=== PATIENT | male | born 1965 | race African-American/Black ===

== ENCOUNTER 2016-11-29 21:54 | Emergency (ER) | payer MEDICARE, OTHER ==
[2016-11-29 22:02] VITALS: BP 119/76
[2016-11-29] MEDS ORDERED: OXYCODONE-ACETAMINOPHEN 5-325 MG TABLET PO ONE (23:23)
--- NOTE | 2016-11-29 23:23 | ER Document Report ---
ED Wound - General Chief Complaint: Wound Infection Stated Complaint: POST OP CONCERNS Time Seen by Provider: 11/29/16 23:10 Notes: Patient is a 50-year-old male comes in the department for chief complaint of wanting his surgical wound evaluated, he states that on 11/21/2016 he had surgical removal of an abdominal mass and hernia repair by Dr. Matthews at [place]. He states that today he noticed an area near the lower part of the wound that was draining some clear fluid, he denies pain, fever, chills, he has a colostomy bag secondary to a recent bowel obstruction which was also repaired and this has been filling normally. He denies any vomiting. He has a follow- up on 12/03/2016. TRAVEL OUTSIDE OF THE [place] IN LAST 30 DAYS: No - Related Data Allergies/Adverse Reactions: No Known Allergies Allergy (Verified 03/23/16 22:33) Past Medical History - General Information source: Patient - Social History Smoking Status: Never Smoker Frequency of alcohol use: None Lives with: Spouse/Significant other Family History: Reviewed & Not Pertinent Patient has suicidal ideation: No Patient has homicidal ideation: No - Past Medical History Cardiac Medical History: Denies: Hx Heart Attack, Hx Hypertension Pulmonary Medical History: Reports: Hx Sleep Apnea - Patient has CPAP but doesnt use it Denies: Hx Asthma, Hx Bronchitis, Hx COPD, Hx Pneumonia, Hx Respiratory Failure, Hx Tuberculosis Neurological Medical History: Denies: Hx Seizures Renal/ Medical History: Denies: Hx Peritoneal Dialysis Malignancy Medical History: Reports Hx Colorectal Cancer GI Medical History: Denies: Hx Gastroesophageal Reflux Disease, Hx Hiatal Hernia , Hx Ulcer Musculoskeltal Medical History: Denies Hx Arthritis Psychiatric Medical History: Reports: Hx Depression, Hx Post Traumatic Stress Disorder Denies: Hx Bipolar Disorder, Hx Schizophrenia Past Surgical History: Denies: Hx Appendectomy, Hx Bowel Surgery, Hx Cholecystectomy, Hx Open Heart Surgery, Hx Tonsillectomy - Immunizations Hx Diphtheria, Pertussis, Tetanus Vaccination: Yes Review of Systems - Review of Systems Constitutional: No symptoms reported EENT: No symptoms reported Cardiovascular: No symptoms reported Respiratory: No symptoms reported Gastrointestinal: No symptoms reported Genitourinary: No symptoms reported Male Genitourinary: No symptoms reported Musculoskeletal: No symptoms reported Skin: See HPI Hematologic/Lymphatic: No symptoms reported Neurological/Psychological: No symptoms reported Physical Exam - Vital signs Vitals: Temp Pulse Resp BP Pulse Ox 98.5 F 95 18 119/76 98 11/29/16 21:57 11/29/16 21:57 11/29/16 21:57 11/29/16 21:57 11/29/16 21:57 Interpretation: Normal - General General appearance: Appears well, Alert In distress: None - HEENT Head: Normocephalic, Atraumatic Eyes: Normal Conjunctiva: Normal Extraocular movements intact: Yes Eyelashes: Normal Pupils: PERRL Nasal: Normal Mouth/Lips: Normal Mucous membranes: Normal Pharynx: Normal Neck: Normal - Respiratory Respiratory status: No respiratory distress Chest status: Nontender Breath sounds: Normal Chest palpation: Normal - Cardiovascular Rhythm: Regular Heart sounds: Normal auscultation Murmur: No - Abdominal Inspection: Other - There is a large ventral surgical wound with current maggie surgeon vertically from the epigastric area all the way down to the groin, there are [address] in the bilateral groin areas. There is one area in question in the area and the superior groin where one staple pulled out on one side and there is a 2 cm opening that is partial- thickness with granulation tissue below this and clear drainage. No significant surrounding erythema or tenderness, no other abnormalities noted Distension: No distension Bowel sounds: Normal Tenderness: Nontender Organomegaly: No organomegaly - Back Back: Normal, Nontender. No: Tender - Extremities General upper extremity: Normal inspection, Nontender, Normal color, Normal ROM , Normal temperature General lower extremity: Normal inspection, Nontender, Normal color, Normal ROM , Normal temperature, Normal weight bearing. No: Ashish's sign - Neurological Neuro grossly intact: Yes Cognition: Normal Orientation: AAOx4 [place] Coma Scale Eye Opening: Spontaneous [place] Coma Scale Verbal: Oriented Isabel Coma Scale Motor: Obeys Commands Isabel Coma Scale Total: 15 Speech: Normal Motor strength normal: LUE, RUE, LLE, RLE Sensory: Normal - Psychological Associated symptoms: Normal affect, Normal mood - Skin Skin Temperature: Warm Skin Moisture: Dry Skin Color: Normal Course - Re-evaluation Re-evalutation: I did review the triage note, states that patient states the area is red and inflamed and had purulent drainage. Patient denies that the area is inflamed or red, denies any purulent drainage, reports a small amount of clearish drainage and that the area looks strange compared to earlier. What has happened is that one of the maggie pulled out and the wound slightly and a small portion of the lower aspect, the superficial layer is pulled to the side with a precarious staple on one side. The staple was removed because of its lack of function and irritation with movement, the wound was unchanged after the removal because of the staple no longer being embedded properly. Patient admits he had increased physical activity today trying to move/get around. Bacitracin and Telfa dressing placed. Called and spoke with Dr. Matthews applications support lead surgeon, described patient's pulled out staple in slightly open wound without significant depth, clear drainage, and patient's concerns about follow-up with this. Recommends topical dressing, regular wound care, and close follow-up in the office. Discussed with patient again, patient stated satisfaction agreement. Also discussed signs of infection and return precautions. - Vital Signs Vital signs: Temp Pulse Resp BP Pulse Ox 98.5 F 95 18 119/76 98 11/29/16 21:57 11/29/16 21:57 11/29/16 21:57 11/29/16 21:57 11/29/16 21:57 Discharge - Discharge Clinical Impression: Visit for wound check Condition: Stable Disposition: HOME, SELF-CARE Additional Instructions: The staple has been removed, the area does not show any concerning abnormalities , please apply a bacterial dressing to the area clean with soap and water gently , follow-up closely in the clinic with your surgeon for reevaluation. Return to emergency department for any concerning symptoms including fever, redness or spreading redness to the area, discolored drainage, or any other concerning symptoms.
== END 2016-11-30 01:06 | disposition home or self-care (01) ==
LOC: ER 21:54
DX: T81.31XA Disruption of external operation (surgical) wound, not elsewhere classified, initial encounter (principal); Y83.8 Other surgical procedures as the cause of abnormal reaction of the patient, or of later complication, without mention of misadventure at the time of the procedure; Z93.3 Colostomy status
CPT/HCPCS: 99283; A9270

== ENCOUNTER 2017-02-26 23:30 | Observation (INO) | payer MEDICARE, OTHER ==
[2017-02-27] MEDS ORDERED: CIPROFLOXACIN 400 MG/D5W RTU 200 ML IV ONE (03:22)
[2017-02-27] MEDS ORDERED: METRONIDAZOLE 500 MG/NS RTU 100 ML IV ONE (03:23)
[2017-02-27] MEDS ORDERED: NORMAL SALINE 1000 ML 1,000 ML IV ONE (03:24)
[2017-02-27 03:41] LABS: ABSOLUTE BASOPHILS # (AUTO) 0.1 10^3/uL (0.0-0.2); ABSOLUTE EOSINOPHILS # (AUTO) 0.1 10^3/uL (0.0-0.6); ABSOLUTE LYMPHOCYTES (AUTO) 1.1 10^3/uL (0.5-4.7); ABSOLUTE MONOCYTES (AUTO) 1.4 10^3/uL (0.1-1.4); ABSOLUTE NEUT (AUTO) 12.5 10^3/uL (1.7-8.2); BASOPHILS % (AUTO) 0.6 % (0-2); EOSINOPHILS % (AUTO) 0.5 % (0-6); HEMATOCRIT 38.3 % (37.9-51.0); HEMOGLOBIN 12.7 g/dL (13.5-17.0); HGB HCT DIFFERENCE -0.2; LYMPHOCYTES % (AUTO) 7.3 % (13-45); MEAN CORPUSCULAR HEMOGLOBIN 29.1 pg (27.0-33.4); MEAN CORPUSCULAR HGB CONC 33.3 g/dL (32.0-36.0); MEAN CORPUSCULAR VOLUME 87 fl (80-97); MONOCYTES % (AUTO) 9.2 % (3-13); RED BLOOD COUNT 4.39 10^6/uL (4.35-5.55); SEGMENTED NEUTROPHILS % (AUTO) 82.4 % (42-78); WHITE BLOOD COUNT 15.1 10^3/uL (4.0-10.5)
[2017-02-27 03:50] LABS: ALANINE AMINOTRANSFERASE 29 U/L (21-72); ALBUMIN 3.5 g/dL (3.5-5.0); ALKALINE PHOSPHATASE 128 U/L (38-126); ANION GAP 8 (5-19); ASPARTATE AMINO TRANSFERASE 18 U/L (17-59); BILIRUBIN,DIRECT 0.3 mg/dL (0.0-0.4); BILIRUBIN,TOTAL 0.4 mg/dL (0.2-1.3); BLOOD UREA NITROGEN 9 mg/dL (7-20); CALCIUM 9.3 mg/dL (8.4-10.2); CARBON DIOXIDE 21 mmol/L (22-30); CHLORIDE 108 mmol/L (98-107); CREATININE RESULT 0.84 mg/dL (0.52-1.25); GLUCOSE 98 mg/dL (75-110); POTASSIUM 4.6 mmol/L (3.6-5.0); SODIUM 136.7 mmol/L (137-145); TOTAL PROTEIN 6.8 g/dL (6.3-8.2)
--- NOTE | 2017-02-27 06:00 | ER Document Report ---
HPI - HPI Pain Level: 5 Notes: Patient is a 51-year-old male with a history of current colon cancer who presents the ED complaining of an abscess to his perineal area 1-2 days. Patient states that he has had abscesses in this area in the past and needed it I&D'd and put to sleep. Patient states that he has not noticed any discharge. Patient states that the area is very tender. He denies any history of MRSA. Denies any fever, RABAGO, cp, palp, sob, wheeze, abd pain, n/v/d, dysuria, streaks. PCM is Dr. Nunes. Pt is requesting if he needs another I&D to be put to sleep in surgery. - ROS Notes: REVIEW OF SYSTEMS: CONSTITUTIONAL : Denies fever, chills, or sweats. Denies recent illness. EENT: Denies eye, ear, throat, or mouth pain or symptoms. Denies nasal or sinus congestion or discharge. Denies throat, tongue, or mouth swelling or difficulty swallowing. CARDIOVASCULAR: Denies chest pain. Denies palpitations or racing or irregular heart beat. Denies ankle edema. RESPIRATORY: Denies cough, cold, or chest congestion. Denies shortness of breath, difficulty breathing, or wheezing. GASTROINTESTINAL: Denies abdominal pain or distention. Denies nausea, vomiting , or diarrhea. Denies blood in vomitus, stools, or per rectum. Denies black, tarry stools. Denies constipation. GENITOURINARY: Denies difficulty urinating, painful urination, burning, frequency, blood in urine, or discharge. MUSCULOSKELETAL: Denies back or neck pain or stiffness. Denies joint pain or swelling. SKIN: see hpi NEUROLOGICAL: Denies confusion or altered mental status. Denies passing out or loss of consciousness. Denies dizziness or lightheadedness. Denies headache. Denies weakness or paralysis or loss of use of either side. Denies problems with gait or speech. Denies sensory loss, numbness, or tingling. ALL OTHER SYSTEMS REVIEWED AND NEGATIVE. Dictation was performed using [employer] voice recognition software - DERM Skin Color: Normal, [place] Past Medical History - Social History Smoking Status: Current Every Day Smoker Frequency of alcohol use: Occasional Drug Abuse: None Family History: Reviewed & Not Pertinent - Past Medical History Cardiac Medical History: Denies: Hx Heart Attack, Hx Hypertension Pulmonary Medical History: Reports: Hx Sleep Apnea - Patient has CPAP but doesnt use it Denies: Hx Asthma, Hx Bronchitis, Hx COPD, Hx Pneumonia, Hx Respiratory Failure, Hx Tuberculosis Neurological Medical History: Denies: Hx Seizures Renal/ Medical History: Denies: Hx Peritoneal Dialysis Malignancy Medical History: Reports Hx Colorectal Cancer GI Medical History: Denies: Hx Gastroesophageal Reflux Disease, Hx Hiatal Hernia , Hx Ulcer Musculoskeltal Medical History: Denies Hx Arthritis Psychiatric Medical History: Reports: Hx Depression, Hx Post Traumatic Stress Disorder Denies: Hx Bipolar Disorder, Hx Schizophrenia Past Surgical History: Reports: Hx Kidney (Renal Surgery) - bilat stents q 6months, Hx Rectal Surgery - colorectal resection; colostomy. Denies: Hx Appendectomy, Hx Bowel Surgery, Hx Cholecystectomy, Hx Open Heart Surgery, Hx Tonsillectomy - Immunizations Hx Diphtheria, Pertussis, Tetanus Vaccination: Yes Vertical Provider Document - CONSTITUTIONAL Agree With Documented VS: Yes Notes: PHYSICAL EXAMINATION: GENERAL: Well-appearing, well-nourished and in no acute distress. LUNGS: Breath sounds clear to auscultation bilaterally and equal. No wheezes rales or rhonchi. HEART: Regular rate and rhythm without murmurs, rubs, gallops. ABDOMEN: Soft, nontender, nondistended abdomen. No guarding, no rebound. No masses appreciated. Normal bowel sounds present. No CVA tenderness bilaterally. Musculoskeletal: FROM to passive/active. Strength 5+/5. NEUROLOGICAL: Cranial nerves grossly intact. Normal speech, normal gait. Normal sensory, motor exams PSYCH: Normal mood, normal affect. SKIN: Multiple abscesses noted to the perineal area. One abscess is actively draining with a very foul odor and purulence. He has a larger 5-6cm abscess area running along the inferior aspect of the penile shaft with induration. He has several other smaller abscesses with induration. No streaks noted. + tenderness to palp. - INFECTION CONTROL TRAVEL OUTSIDE OF THE [place] IN LAST 30 DAYS: No - RESPIRATORY O2 Sat by Pulse Oximetry: 98 Course - Re-evaluation Re-evalutation: 02/27/17 06:00 Patient is an afebrile, well-hydrated, 51-year-old male with a current history of cancer presents the ED with multiple abscesses to the perineal area. Vitals are stable. PE otherwise unremarkable at this time. Per patient request I did consult with Dr. Doss who did come to the ED and evaluated the patient. The patient is set up for a surgical procedure in the morning for incision and drainage under general sedation. Care has been transferred to the general surgeon. Pt has no new concerns or complaints. Recheck with PCM otherwise in 2 -3 days. Return to ED with any worsening/concerning symptoms otherwise reviewed discharge. Patient is in agreement. - Vital Signs Vital signs: Temp Pulse Resp BP Pulse Ox 98.5 F 105 H 16 126/79 H 98 02/26/17 23:33 02/26/17 23:33 02/26/17 23:33 02/26/17 23:33 02/26/17 23:33 - Laboratory Result Diagrams: 02/27/17 03:00 02/27/17 03:00 Laboratory results interpreted by me: 02/27/17 02/27/17 03:00 03:00 WBC 15.1 H Hgb 12.7 L RDW 16.0 H Seg Neutrophils % 82.4 H Lymphocytes % 7.3 L Absolute Neutrophils 12.5 H Sodium 136.7 L Chloride 108 H Carbon Dioxide 21 L Alkaline Phosphatase 128 H Discharge - Discharge Clinical Impression: Abscess Condition: Stable Disposition: SAME DAY SURGERY Admitting Provider: Surgicalist - Dr. Doss Unit Admitted: Surgical Floor
--- NOTE | 2017-02-27 06:22 | HISTORY AND PHYSICAL E ---
History and Physical NAME: MEE MACIAS : 1965 AGE: 51Y ADMITTED: 02/26/2017 ROOM: CHIEF COMPLAINT: Pain on the perineal area. HISTORY OF PRESENT ILLNESS: This is a 51-year-old -[place] male, who noted painful swelling on the perineal area about 2 days ago. He went to the emergency room and in the ER; the area had swollen spontaneously, drained. He had a history of multiple hidradenitis along the perineum area in the past. Those of these hidradenitis were just subsided without medical therapy or they drained on their own. PAST HISTORY: This patient had a history of colorectal cancer in 2011. He had original operation here at [facility] and then had a formal abdominoperineal resection within colostomy at [place]. He had a bowel obstruction and had operation at [facility] in November of this year. 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 This was noted on a CAT scan in January and just had his first Keytruda treatment. He also has a ureteral stenting that changes every 6 months since he had radiation therapy around the uterus. The stents need to be changed every 6 months and is due next month. He has no difficulty, but spontaneously unable to control his urination. REVIEW OF SYSTEMS: Denies any chest pain, shortness of breath, diarrhea, or constipation. Has inability to control his voiding, appears to be worse at the time of changing of his ureteral stents, it has been every 6 months. His colostomy is functioning well. Occasional flare-up of his hidradenitis suppurativa and now has abscess likely from the hidradenitis at the perineal area. Other systems review then are negative. SOCIAL HISTORY: Smokes about 2 cigars a day. Drinks about 6 packs of beer with about 4 shots of hot drink every week. Denies recreational drug use. FAMILY HISTORY: Family history is very strong for cancer and both parents of cancer. He also had been diagnosed himself with colorectal cancer at age 45. PHYSICAL EXAMINATION: GENERAL: A well-developed and well-nourished 51-year-old -[place] male. Alert and oriented in no apparent acute distress. HEENT: Neck is supple. No thyromegaly. LUNGS: Clear. HEART: Regular sinus rhythm. ABDOMEN: Soft and nontender. Colostomy functioning well. On the perineal area, he has got a swelling and that is very tender, the tender rectum and the base of the scrotum. He says he has a small amount of bloody discharge. IMPRESSION: Perineal abscess. PLAN: The patient to be n.p.o. and start IV antibiotics for possible incision and drainage of perineal abscess. DICTATING PHYSICIAN: REGINE GAGE M.D. [id number] PHY#: [id number] ID: [id number] JOB#: [id number] ACCT: [id number] cc: >
[2017-02-27] MEDS ORDERED: SUCCINYLCHOLINE CHLORIDE INJ 200 MG/10 ML VIAL ONE (10:01)
[2017-02-27] MEDS ORDERED: ONDANSETRON HCL INJ/PF 4 MG/2 ML SDV ONE (10:01)
--- NOTE | 2017-02-27 10:06 | PDOC PROGRESS REPORT ---
Subjective Progress Note for:: 02/27/17 Subjective:: pain at the perineum and bilateral groins. Physical Exam Vital Signs: Temp Pulse Resp BP Pulse Ox 99.0 F 85 16 128/75 H 100 02/27/17 06:10 02/27/17 06:10 02/27/17 06:10 02/27/17 06:10 02/27/17 06:10 General appearance: PRESENT: no acute distress, cooperative Skin exam: PRESENT: other - Left upper inner thigh with an oblong region of fluctuance and tenderness with sinus tract. Smaller region on the right upper inner thigh. Tenderness and fluctuance at the perineum as well. Tender and erythematous. Assessment & Plan - Diagnosis (1) Hidradenitis suppurativa Is this a current diagnosis for this admission?: YesPlan: Infected. Of bilateral groin and perineum. Will plan excisional debridement in the operating room. Patient understands risks and benefits of the procedure since he has undergone this procedure in the past. He understands that the wound will be left open and there may be prolonged wound healing as well as recurrence.
[2017-02-27] MEDS ORDERED: FENTANYL CITRATE INJ/PF 250 MCG/5 ML AMPULE ONE (12:37)
[2017-02-27] MEDS ORDERED: MIDAZOLAM 2 MG/2 ML INJ ONE (12:37)
[2017-02-27] MEDS ORDERED: PROPOFOL INJ 200 MG/20 ML VIAL IV ONE (12:38)
[2017-02-27] MEDS ORDERED: KETAMINE HCL INJ 500 MG/10 ML VIAL ONE (12:38)
[2017-02-27] MEDS ORDERED: BUPIVACAINE HCL 0.25 % INJ/PF (2.5 MG/1 ML) 30 ML VIAL ONE (12:39)
[2017-02-27] MEDS ORDERED: CEFAZOLIN INJ 1 GM VIAL ONE (13:17)
[2017-02-27] MEDS ORDERED: DIPHENHYDRAMINE HCL 50 MG/ML VIAL IV PRN (13:37)
[2017-02-27] MEDS ORDERED: MORPHINE SULFATE 10 MG/ML INJ IV PRN ×2 (13:37→14:00)
[2017-02-27] MEDS ORDERED: FENTANYL CITRATE INJ/PF 100 MCG/2 ML AMPUL IV PRN ×3 (13:37)
[2017-02-27] MEDS ORDERED: OXYCODONE-ACETAMINOPHEN 5-325 MG TABLET PO PRN (14:00)
--- NOTE | 2017-02-27 14:00 | Operative Report ---
Operative Report DATE OF SURGERY: 02/27/17 PREOPERATIVE DIAGNOSIS: Hidradenitis suppurativa abscesses of the bilateral groin and perineum POSTOPERATIVE DIAGNOSIS: Same OPERATION: Excisional debridement of bilateral groin and perineal hidradenitis suppurativa. SURGEON: JEFFREY TAMEZ ANESTHESIA: GA TISSUE REMOVED OR ALTERED: Bilateral groin and perineal hidradenitis suppurativa sinus tracts and pus COMPLICATIONS: None ESTIMATED BLOOD LOSS: 50 cc INTRAOPERATIVE FINDINGS: Multiple proximal sinus tracts that the perineum and bilateral groin with small amount of pus. PROCEDURE: Consent was obtained. Patient was brought to the operating room placed on the operating room table in the supine position. After satisfactory induction of general anesthesia patient was placed in stirrups and his groin and perineum were prepped and draped in usual sterile fashion. Patient had sinus tracts in the perineum with oblong region of what felt like fluctuance. Sinus tracts were probed and filleted open and sharply debrided with a combination of scalpel as well as curetting. Hemostasis was achieved with electrocautery. The wound was explored to make sure there were no undrained pus pockets. On the left groin there was an oblong region of fluctuance this was associated with the sinus tract which was filleted open and again debrided with combination of scalpel as well as curetting and this wound was explored to make sure there were no undrained pus pockets. A very small area of thickening with the sinus tract was noted in the right groin and this area was also filleted open and curetted and explored. Small amount of pus that was encountered during the dissections were swabbed for Gram stain and culture. Hemostasis appeared to be good. Wounds were packed with gauze. Patient tolerated procedure well with no apparent complications and was taken to the recovery area in stable condition.
[2017-02-27] MEDS ORDERED: IBUPROFEN INJ 800 MG/8 ML VIAL IV ONE (14:30)
[2017-02-27] MEDS ORDERED: FENTANYL CITRATE INJ/PF 100 MCG/2 ML AMPUL ONE (14:30)
[2017-02-27] MEDS ORDERED: ACETAMINOPHEN 100 ML IV ONE (14:31)
[2017-02-27] MEDS: CEFAZOLIN 1 GM/D5W RTU 50 ML IV SCH ×2 (19:33→23:23)
[2017-02-28] MEDS: CEFAZOLIN 1 GM/D5W RTU 50 ML IV SCH ×2 (05:05→11:29)
[2017-02-28 11:47] VITALS: BP 132/85
--- NOTE | 2017-02-28 16:47 | DISCHARGE SUMMARY E ---
Discharge Summary NAME: MEE MACIAS : 1965 AGE: 51Y ADMITTED: 02/27/2017 DISCHARGED: 02/28/2017 FINAL DIAGNOSIS: Hidradenitis suppurativa abscesses of bilateral groin and perineum. PROCEDURE DONE: Excisional debridement of bilateral groin and perineal hidradenitis suppurativa. SURGEON: Dr. Johnson on 02/27/17. SUMMARY: This is a 51-year-old male who is known to have hidradenitis suppurativa for quite some time according to the patient. He had chronic hidradenitis suppurativa that would spontaneously open and then close. He never had anything done in the hospital for this until the day of admission. He has a history of colon cancer and undergoing Keytruda therapy. Therefore his immune system is somewhat decreased. After the I and D and excision, postoperatively he did well. He will be continued on p.o. doxycycline 50 mg daily for about 30 days or until his immunotherapy is done or if the lesions in the perineum and groin have been healed. Patient to be followed up on a p.r.n. basis with the surgical clinical. DICTATING PHYSICIAN: REGINE GAGE M.D. [id number] PHY#: [id number] ID: [id number] JOB#: [id number] ACCT: [id number] cc:[facility], REGINE CHOUDHURY M.D, M.D. [facility], [facility] >
== END 2017-02-28 12:40 | disposition home or self-care (01) ==
LOC: ER 23:30 → EH 02-27 07:29 → 5 02-27 15:38
PROVIDERS: ATTEND Surgery
PROC: 0JBB0ZZ Excision of Perineum Subcutaneous Tissue and Fascia, Open Approach (ICD-10-PCS; principal; 2017-02-27 12:45)
DX: L73.2 Hidradenitis suppurativa (principal); D49.89 Neoplasm of unspecified behavior of other specified sites; Z79.899 Other long term (current) drug therapy; Z85.038 Personal history of other malignant neoplasm of large intestine; R39.198 Other difficulties with micturition; Z96.0 Presence of urogenital implants; Z92.3 Personal history of irradiation; Z80.9 Family history of malignant neoplasm, unspecified; Z93.3 Colostomy status; F17.290 Nicotine dependence, other tobacco product, uncomplicated; G47.30 Sleep apnea, unspecified; Z91.19 Patient's noncompliance with other medical treatment and regimen; Z90.49 Acquired absence of other specified parts of digestive tract
CPT/HCPCS: 99284; 96365; 96368; 36415; 87040; 87070; 87205; 85025; 87075; 87077; 80053; 88305 ×2; 11470; G0378 ×3; J2250; J0690 ×3; J3010 ×2; J0330; J2405; J7030; J2704; J0744; J0131; J1741; 400; J3490

== ENCOUNTER 2017-04-28 09:39 | Emergency (ER) | payer MEDICARE, OTHER ==
[2017-04-28 09:47] VITALS: BP 139/92
[2017-04-28] MEDS ORDERED: OXYCODONE-ACETAMINOPHEN 5-325 MG TABLET PO ONE (10:04)
[2017-04-28] MEDS ORDERED: SULFAMETHOXAZOLE/TRIMETHOPRIM 800-160 MG TABLET PO ONE (10:04)
[2017-04-28] MEDS ORDERED: LIDOCAINE 1% INJ-PF (10 MG/ML) 30 ML SDV INJ ONE (10:04)
--- NOTE | 2017-04-28 10:05 | ER Document Report ---
ED Skin Rash/Insect Bite/Abscs - General Chief Complaint: Abscess Stated Complaint: POSSIBLE ABCESS ON GROIN Time Seen by Provider: 04/28/17 09:50 Notes: Patient is a 51-year-old male who presents emergency department with a history of hidradenitis suprapubic. Patient states that he has an area within his right groin that he states needs an I&D but is been there for about 2 days. States it is no larger than the size of a dime. Tender to touch. Otherwise he denies any fever, chills. Denies any other sites that are concerning for infection. Primary care is Dr. Barragan. TRAVEL OUTSIDE OF THE [place] IN LAST 30 DAYS: No - Related Data Allergies/Adverse Reactions: No Known Allergies Allergy (Verified 02/26/17 23:33) Past Medical History - Social History Smoking Status: Never Smoker Family History: Reviewed & Not Pertinent Patient has suicidal ideation: No Patient has homicidal ideation: No - Past Medical History Cardiac Medical History: Denies: Hx Heart Attack, Hx Hypertension Pulmonary Medical History: Reports: Hx Sleep Apnea - Patient has CPAP but doesnt use it Denies: Hx Asthma, Hx Bronchitis, Hx COPD, Hx Pneumonia, Hx Respiratory Failure, Hx Tuberculosis Neurological Medical History: Denies: Hx Seizures Renal/ Medical History: Denies: Hx Peritoneal Dialysis Malignancy Medical History: Reports Hx Colorectal Cancer GI Medical History: Denies: Hx Gastroesophageal Reflux Disease, Hx Hiatal Hernia , Hx Ulcer Musculoskeltal Medical History: Denies Hx Arthritis Psychiatric Medical History: Reports: Hx Depression, Hx Post Traumatic Stress Disorder Denies: Hx Bipolar Disorder, Hx Schizophrenia Past Surgical History: Reports: Hx Kidney (Renal Surgery) - bilat stents q 6months, Hx Rectal Surgery - colorectal resection; colostomy. Denies: Hx Appendectomy, Hx Bowel Surgery, Hx Cholecystectomy, Hx Open Heart Surgery, Hx Tonsillectomy - Immunizations Hx Diphtheria, Pertussis, Tetanus Vaccination: Yes Review of Systems - Review of Systems Constitutional: No symptoms reported Skin: See HPI -: Yes All other systems reviewed and negative Physical Exam - Vital signs Vitals: Temp Pulse Resp BP Pulse Ox 98.6 F 77 20 127/77 H 97 04/28/17 02:47 04/28/17 02:47 04/28/17 02:47 04/28/17 02:47 04/28/17 02:47 - General General appearance: Appears well, Alert In distress: None - Cardiovascular Rhythm: Regular Heart sounds: Normal auscultation, S1 appreciated, S2 appreciated Gallop: None auscultated Pulses: Normal: Radial - Genitourinary Inspection: Normal. No: Blood at meatus, Penile discharge, Other Tenderness: Nontender. No: Lesions, Testicle tender, Epididymis tender, Other Cremasteric reflex: Normal. No: Right reflex absent, Left reflex absent Scrotum: Normal. No: Swelling, Redness, Hot to touch, Other - Extremities General lower extremity: Normal inspection, Nontender, Normal color, Normal ROM , Normal strength, Normal temperature, Normal weight bearing - Neurological Motor strength normal: LLE, RLE - Skin Skin Temperature: Warm Skin Moisture: Dry Skin irregularity: Abscess - Within patient's right groin there is an area that measures approximately centimeters by 2 7 m with mild fluctuation and tenderness more medial and inferior to that is another site that is approximately the size of a dime that is come to head that is tender to touch. Course - Re-evaluation Re-evalutation: 04/28/17 9:55 Patient is a 51-year-old male who is hemodynamically stable, no acute distress afebrile. Presentation today is consistent with adenitis supratip. Both sites were lanced using an 11 blade and purulent material removed. Otherwise no other indication for surgical consult given no areas involving his scrotum, penis with concerns for Timoteo's gangrene. No evidence of abscess crossing the joint requiring further incision and drainage. Patient will be placed on Bactrim and to follow-up in 3 days with primary care for a wound check. Patient agrees with plan - Vital Signs Vital signs: Temp Pulse Resp BP Pulse Ox 98.0 F 95 16 139/92 H 97 04/28/17 09:45 04/28/17 09:45 04/28/17 09:45 04/28/17 09:45 04/28/17 09:45 Procedures - Incision and Drainage Right Groin Type: Multiple - 2 Blade size: 11 I&D procedure: Chlorprep applied Incision Method: Incision made by scalpel Amount/type of drainage: Approximately 15 cc total of purulent material Male anatomy: 1 - Large abscess measuring 3 cm x 2 cm 2 - Small site measuring 1 cm in diameter Discharge - Discharge Clinical Impression: Hidradenitis suppurativa Condition: Good Disposition: HOME, SELF-CARE Instructions: Post Incision and Drainage, Trimethoprim-Sulfa ([facility]) Prescriptions: Oxycodone HCl/Acetaminophen [Percocet 5-325 mg Tablet] 1 - 2 tab PO Q4H PRN #15 tablet PRN Reason: Sulfamethoxazole/Trimethoprim [Bactrim Ds Tablet] 2 each PO BID 7 Days tablet Referrals: GALILEA BARRAGAN MD [Primary Care Provider] - Follow up in 1 week
== END 2017-04-28 11:56 | disposition home or self-care (01) ==
LOC: ER 09:39
PROC: 0H9AXZZ Drainage of Inguinal Skin, External Approach (ICD-10-PCS; principal; 2017-04-28)
DX: L73.2 Hidradenitis suppurativa (principal); L02.214 Cutaneous abscess of groin; Z85.048 Personal history of other malignant neoplasm of rectum, rectosigmoid junction, and anus
CPT/HCPCS: 99283; 10061; J3490; A9270 ×2

== ENCOUNTER → 2017-07-01 | Outpatient (CLI) | payer MEDICARE, OTHER ==
--- NOTE | 2017-07-01 13:08 | RADIOLOGY REPORT (SQ) ---
EXAM DESCRIPTION: LUMBAR SPINE COMPLETE COMPLETED DATE/TIME: 07/01/2017 12:48 pm REASON FOR STUDY: LOW BACK PAIN M54.5 LOW BACK PAIN COMPARISON: None. NUMBER OF VIEWS: Five views including obliques. TECHNIQUE: AP, lateral, oblique, and sacral radiographic images acquired of the lumbar spine. LIMITATIONS: None. FINDINGS: MINERALIZATION: Normal. SEGMENTATION: Normal. No transitional anatomy. ALIGNMENT: Normal. VERTEBRAE: Maintained height. No fracture or worrisome bone lesion. DISCS: Disc spaces narrowed at L5-S1. POSTERIOR ELEMENTS: Pedicles and facets are intact. No pars defect or posterior arch defects. HARDWARE: None in the spine. Bilateral ureteral stents and percutaneous nephrostomies are present. PARASPINAL SOFT TISSUES: Normal. PELVIS: Intact as visualized. No fractures or worrisome bone lesions. SI joints intact. OTHER: No other significant finding. IMPRESSION: Degenerative disc changes L5-S1. TECHNICAL DOCUMENTATION: JOB ID: [id number] [employer]- All Rights Reserved
== END ==
LOC: OD 12:30
PROVIDERS: ATTEND Physician Assistant
DX: M47.9 Spondylosis, unspecified (principal); M54.5 Low back pain
CPT/HCPCS: 72110

== ENCOUNTER 2017-08-16 10:05 | Observation (INO) | payer MEDICARE, OTHER ==
--- NOTE | 2017-08-16 10:28 | ER Document Report ---
ED Medical Screen (RME) - General Chief Complaint: Abscess Stated Complaint: POSSIBLE ABSCESS Time Seen by Provider: 08/16/17 10:19 Mode of Arrival: Ambulatory Information source: Patient Notes: 51-year-old male presents with 2 separate complaints. Patient's first complaint is abscess in the perineal region, second his ear clogging. Patient has had multiple previous abscesses I have greeted and performed a rapid initial assessment of this patient. A comprehensive ED assessment and evaluation of the patient, analysis of test results and completion of the medical decision making process will be conducted by additional ED providers. PHYSICAL EXAMINATION: GENERAL: Well-appearing, well-nourished and in no acute distress. HEAD: Atraumatic, normocephalic. EYES: Pupils equal round extraocular movements intact, conjunctiva are normal. ENT: Nares patent NECK: Normal range of motion LUNGS: No respiratory distress Musculoskeletal: Normal range of motion NEUROLOGICAL: Normal speech, normal gait. PSYCH: Normal mood, normal affect. SKIN: multiple abscesses of the perineal region TRAVEL OUTSIDE OF THE [place] IN LAST 30 DAYS: No - Related Data Allergies/Adverse Reactions: No Known Allergies Allergy (Verified 08/16/17 10:06) Past Medical History - Social History Frequency of alcohol use: Occasional Drug Abuse: None - Past Medical History Cardiac Medical History: Denies: Hx Heart Attack, Hx Hypertension Pulmonary Medical History: Reports: Hx Sleep Apnea - Patient has CPAP but doesnt use it Denies: Hx Asthma, Hx Bronchitis, Hx COPD, Hx Pneumonia, Hx Respiratory Failure, Hx Tuberculosis Neurological Medical History: Denies: Hx Seizures Renal/ Medical History: Denies: Hx Peritoneal Dialysis Malignancy Medical History: Reports Hx Colorectal Cancer GI Medical History: Denies: Hx Gastroesophageal Reflux Disease, Hx Hiatal Hernia , Hx Pancreatitis, Hx Ulcer Musculoskeltal Medical History: Denies Hx Arthritis Psychiatric Medical History: Reports: Hx Depression, Hx Post Traumatic Stress Disorder Denies: Hx Bipolar Disorder, Hx Schizophrenia Past Surgical History: Reports: Hx Kidney (Renal Surgery) - bilat stents q 6months, Hx Rectal Surgery - colorectal resection; colostomy. Denies: Hx Appendectomy, Hx Bowel Surgery, Hx Cholecystectomy, Hx Open Heart Surgery, Hx Tonsillectomy - Immunizations Hx Diphtheria, Pertussis, Tetanus Vaccination: Yes History of Influenza Vaccine for 04/2017 - 09/2017 Season: No Physical Exam - Vital signs Vitals: Temp Pulse Resp BP Pulse Ox 98.5 F 97 20 130/86 H 99 08/16/17 10:10 08/16/17 10:10 08/16/17 10:10 08/16/17 10:10 08/16/17 10:10 Course - Vital Signs Vital signs: Temp Pulse Resp BP Pulse Ox 98.5 F 97 20 130/86 H 99 08/16/17 10:10 08/16/17 10:10 08/16/17 10:10 08/16/17 10:10 08/16/17 10:10
--- NOTE | 2017-08-16 11:00 | ER Document Report ---
ED Skin Rash/Insect Bite/Abscs - General Chief Complaint: Abscess Stated Complaint: POSSIBLE ABSCESS Time Seen by Provider: 08/16/17 10:19 Mode of Arrival: Ambulatory TRAVEL OUTSIDE OF THE [place] IN LAST 30 DAYS: No - HPI Patient complains to provider of: Skin rash/lesion, Tender/swollen area - Pt with h/o perineal abscesses in the past with c/o swollen tender area at base of his scrotum for the past 1-2 days. - Related Data Allergies/Adverse Reactions: No Known Allergies Allergy (Verified 08/16/17 10:06) Past Medical History - General Information source: Patient - Social History Smoking Status: Current Every Day Smoker Cigarette use (# per day): Yes Chew tobacco use (# tins/day): No Smoking Education Provided: Yes Frequency of alcohol use: Occasional Drug Abuse: None Family History: Reviewed & Not Pertinent Patient has suicidal ideation: No Patient has homicidal ideation: No - Past Medical History Cardiac Medical History: Denies: Hx Heart Attack, Hx Hypertension Pulmonary Medical History: Reports: Hx Sleep Apnea - Patient has CPAP but doesnt use it Denies: Hx Asthma, Hx Bronchitis, Hx COPD, Hx Pneumonia, Hx Respiratory Failure, Hx Tuberculosis Neurological Medical History: Denies: Hx Seizures Renal/ Medical History: Denies: Hx Peritoneal Dialysis Malignancy Medical History: Reports Hx Colorectal Cancer GI Medical History: Denies: Hx Gastroesophageal Reflux Disease, Hx Hiatal Hernia , Hx Pancreatitis, Hx Ulcer Musculoskeltal Medical History: Denies Hx Arthritis Psychiatric Medical History: Reports: Hx Depression, Hx Post Traumatic Stress Disorder Denies: Hx Bipolar Disorder, Hx Schizophrenia Past Surgical History: Reports: Hx Kidney (Renal Surgery) - bilat stents q 6months, Hx Rectal Surgery - colorectal resection; colostomy. Denies: Hx Appendectomy, Hx Bowel Surgery, Hx Cholecystectomy, Hx Open Heart Surgery, Hx Tonsillectomy - Immunizations Hx Diphtheria, Pertussis, Tetanus Vaccination: Yes Review of Systems - Review of Systems Constitutional: No symptoms reported EENT: No symptoms reported Cardiovascular: No symptoms reported Respiratory: No symptoms reported Gastrointestinal: No symptoms reported Skin: See HPI, Other - perienal abscesses Physical Exam - Vital signs Vitals: Temp Pulse Resp BP Pulse Ox 98.5 F 97 20 130/86 H 99 08/16/17 10:10 08/16/17 10:10 08/16/17 10:10 08/16/17 10:10 08/16/17 10:10 - General General appearance: Appears well In distress: Mild - Respiratory Respiratory status: No respiratory distress Breath sounds: Normal - Cardiovascular Rhythm: Regular Heart sounds: Normal auscultation - Abdominal Inspection: Normal Tenderness: Nontender - Genitourinary Inspection: Other - there is a large erythemetous, tender swollen area at the base of his scrotum approx 5 by 5 cm which is exquisitely TTP. He has mutiple scars near that lesion that have been I and D'd in the past. Course - Vital Signs Vital signs: Temp Pulse Resp BP Pulse Ox 98.5 F 97 20 130/86 H 99 08/16/17 10:10 08/16/17 10:10 08/16/17 10:10 08/16/17 10:10 08/16/17 10:10 - Consults wagner Wang Time consulted: 11:07 Consulted provider: will come to ER Discharge - Discharge Clinical Impression: Hidradenitis suppurativa Condition: Stable
[2017-08-16 11:42] LABS: ABSOLUTE BASOPHILS # (AUTO) 0.1 10^3/uL (0.0-0.2); ABSOLUTE EOSINOPHILS # (AUTO) 0.1 10^3/uL (0.0-0.6); ABSOLUTE LYMPHOCYTES (AUTO) 1.1 10^3/uL (0.5-4.7); ABSOLUTE MONOCYTES (AUTO) 1.2 10^3/uL (0.1-1.4); ABSOLUTE NEUT (AUTO) 11.9 10^3/uL (1.7-8.2); BASOPHILS % (AUTO) 0.7 % (0-2); EOSINOPHILS % (AUTO) 0.9 % (0-6); HEMATOCRIT 39.6 % (37.9-51.0); LYMPHOCYTES % (AUTO) 7.8 % (13-45); MEAN CORPUSCULAR HGB CONC 32.8 g/dL (32.0-36.0); MEAN CORPUSCULAR VOLUME 89 fl (80-97); MONOCYTES % (AUTO) 8.1 % (3-13); PLATELET COUNT 347 10^3/uL (150-450); RED BLOOD COUNT 4.47 10^6/uL (4.35-5.55); RED CELL DISTRIBUTION WIDTH 14.4 % (11.5-14.0); SEGMENTED NEUTROPHILS % (AUTO) 82.5 % (42-78); TOTAL CELLS COUNTED % (AUTO) 100 %; WHITE BLOOD COUNT 14.5 10^3/uL (4.0-10.5)
[2017-08-16 11:54] LABS: ALANINE AMINOTRANSFERASE 18 U/L (21-72); ALBUMIN 3.8 g/dL (3.5-5.0); ALKALINE PHOSPHATASE 107 U/L (38-126); ANION GAP 7 (5-19); ASPARTATE AMINO TRANSFERASE 13 U/L (17-59); BILIRUBIN,DIRECT 0.2 mg/dL (0.0-0.4); BILIRUBIN,TOTAL 0.2 mg/dL (0.2-1.3); BLOOD UREA NITROGEN 12 mg/dL (7-20); CALCIUM 10.3 mg/dL (8.4-10.2); CARBON DIOXIDE 26 mmol/L (22-30); CHLORIDE 107 mmol/L (98-107); GLUCOSE 97 mg/dL (75-110); POTASSIUM 4.7 mmol/L (3.6-5.0); SODIUM 140.4 mmol/L (137-145); TOTAL PROTEIN 7.1 g/dL (6.3-8.2)
[2017-08-16] MEDS ORDERED: KETAMINE HCL INJ 500 MG/10 ML VIAL ONE (12:56)
[2017-08-16] MEDS ORDERED: ACETAMINOPHEN 100 ML IV ONE (12:56)
[2017-08-16] MEDS ORDERED: FENTANYL CITRATE INJ/PF 100 MCG/2 ML AMPUL ONE ×2 (12:56→14:28)
[2017-08-16] MEDS ORDERED: PROPOFOL INJ 200 MG/20 ML VIAL IV ONE (12:56)
[2017-08-16] MEDS ORDERED: DEXMEDETOMIDINE INJ 80 MCG/20 ML VIAL IV ONE (12:56)
[2017-08-16] MEDS ORDERED: MIDAZOLAM 2 MG/2 ML INJ ONE (12:56)
[2017-08-16] MEDS ORDERED: CEFTRIAXONE 2 GM/D5W RTU 2 GM/50 ML RTUPB IV PRN (13:28)
[2017-08-16] MEDS ORDERED: FENTANYL CITRATE INJ/PF 100 MCG/2 ML AMPUL INJ ONE (14:08)
[2017-08-16] MEDS ORDERED: DIPHENHYDRAMINE HCL 50 MG/ML VIAL IV PRN (14:14)
[2017-08-16] MEDS ORDERED: ONDANSETRON HCL INJ/PF 4 MG/2 ML SDV IV PRN (14:14)
[2017-08-16] MEDS ORDERED: MEPERIDINE HCL/PF INJ 25 MG/1 ML DISP.SYRIN IV PRN (14:14)
[2017-08-16] MEDS ORDERED: PROMETHAZINE HCL INJ 25 MG/1 ML VIAL IV PRN ×2 (14:14)
[2017-08-16] MEDS ORDERED: FENTANYL CITRATE INJ/PF 100 MCG/2 ML AMPUL IV PRN ×3 (14:14)
--- NOTE | 2017-08-16 14:26 | Operative Report ---
Operative Report DATE OF SURGERY: 08/16/17 PREOPERATIVE DIAGNOSIS: Abscess of perineum POSTOPERATIVE DIAGNOSIS: Abscess of perineum OPERATION: Incision and drainage of perineal abscess with packing SURGEON: DANNY BECK 1ST ASSOCIATE RESEARCH SCIENTIST: None ANESTHESIA: GA TISSUE REMOVED OR ALTERED: None COMPLICATIONS: None ESTIMATED BLOOD LOSS: None INTRAOPERATIVE FINDINGS: 3 cm abscess in the perineum PROCEDURE: The patient was appropriately identified and brought to the operating room. He was given a general anesthesia. Timeout was taken to identify the patient and the procedure. All members of the operating team agreed upon the timeout. He was placed in the prone position. His legs were frog legged to expose the peritoneum. The scrotum was taped to the abdomen. The perineum was prepped and draped in a sterile manner. The abscess was draining pus. A probe was placed in the abscess. An incision was made along the probe to completely open the abscess. Electrocautery was used for hemostasis. Cultures were taken. The abscess was copiously irrigated with normal saline. 1/2 inch form packing was used to pack the wound and obtained further hemostasis. Sterile bandage was applied. The patient was awakened and extubated in the operating room. He was removed to the recovery room in excellent stable condition.
[2017-08-16] MEDS ORDERED: RINGERS SOLUTION,LACTATED 1,000 ML IV PRN (14:43)
[2017-08-16] MEDS ORDERED: MORPHINE SULFATE 10 MG/ML INJ IV PRN (14:46)
[2017-08-16] MEDS ORDERED: HYDROCODONE/ACETAMINOPHEN 7.5-325 MG TABLET PO PRN ×2 (15:39)
[2017-08-16] MEDS ORDERED: ONDANSETRON HCL INJ/PF 4 MG/2 ML SDV ONE (15:55)
[2017-08-16] MEDS ORDERED: DEXAMETHASONE SOD PHOSPHATE INJ 4 MG/1 ML VIAL ONE (15:55)
[2017-08-16] MEDS ORDERED: GLYCOPYRROLATE INJ 0.4 MG/2 ML VIAL ONE (15:55)
[2017-08-16] MEDS ORDERED: LIDOCAINE 2% INJ-PF (20 MG/ML) 2 ML AMPUL ONE (15:55)
[2017-08-16] MEDS ORDERED: SUCCINYLCHOLINE CHLORIDE INJ 200 MG/10 ML VIAL ONE (15:55)
[2017-08-16] MEDS ORDERED: INFLUENZA ADLT QUAD (36MOS+) 2017-18 VAC 0.5 ML SYR IM PRN (16:47)
[2017-08-17] MEDS ORDERED: DOXAZOSIN MESYLATE 4 MG TABLET PO ONE (00:30)
[2017-08-17] MEDS ORDERED: GABAPENTIN 300 MG CAPSULE PO ONE (00:30)
[2017-08-17] MEDS ORDERED: TRAZODONE HCL 50 MG TABLET PO ONE (01:00)
[2017-08-17] MEDS ORDERED: GABAPENTIN 300 MG CAPSULE PO SCH (06:00)
[2017-08-17] MEDS ORDERED: CEFTRIAXONE SODIUM 1,000 MG in NORMAL SALINE 50 ML IV ONE (10:00)
[2017-08-17] MEDS ORDERED: BUPROPION HCL 75 MG TABLET PO SCH (10:00)
--- NOTE | 2017-08-17 10:43 | PDOC DISCHARGE SUMMARY ---
General - Admit/Disc Date/PCP Admission Date/Primary Care Provider: 08/16/17 12:42 LOUISA BARRAGAN MD Discharge Date: 08/17/17 - Additional Information Resuscitation Status: Full Code Home Medications: Acetaminophen [Tylenol Extra Strength] 500 mg PO ASDIR PRN 08/16/17 Azithromycin [Zithromax] 250 mg PO ASDIR PRN 08/16/17 Benzonatate [Tessalon Perle 100 mg Capsule] 100 mg PO Q8HP PRN 08/16/17 Bupropion HCl [Wellbutrin Sr 150 mg Tablet] 150 mg PO DAILY 08/16/17 Cyclobenzaprine HCl [Flexeril 5 mg Tablet] 5 mg PO DAILY PRN 08/16/17 Gabapentin [Neurontin 300 mg Capsule] 900 mg PO Q8 08/16/17 Lidocaine HCl [Aspercreme] 1 applic TOP ASDIR PRN 08/16/17 Prazosin HCl [Minipress] 2 mg PO QHS 08/16/17 Tramadol HCl [Ultram 50 mg Tablet] 50 mg PO ASDIR PRN 08/16/17 Trazodone HCl [Desyrel] 100 mg PO HSP PRN 08/16/17 History of Present Illness Patient complains of: Patient presented with a one-day history of swelling and tenderness of the perineum. History of Present Illness: MEE MACIAS is a 51 year old male Hospital Course Hospital Course: Patient was seen in the emergency department where perineal abscess was diagnosed. He was taken to the operating room for incision and drainage. The wound was packed. Postoperatively he has done well. Morning the first postoperative day the packing was removed and replaced. The wound is clean. There is no surrounding erythema, edema or necrosis. He is being discharged home on Augmentin 500 mg every 8 hours 10 days. He will follow-up with his primary care doctor to check the final cultures. He will follow-up with [facility] in 7-10 days for wound check. He will discharged home on [place] 7.5/325 #20 with directions of 1 or 2 every 6 hours as needed pain Physical Exam Vital Signs: Temp Pulse Resp BP Pulse Ox 98.2 F 89 18 138/82 H 100 08/17/17 07:26 08/17/17 07:26 08/17/17 07:26 08/17/17 07:26 08/17/17 07:26 Intake & Output 08/16/17 08/17/17 08/18/17 06:59 06:59 06:59 Intake Total 2325 Output Total 200 Balance 2125 Weight 102.4 kg Gentrourinary exam: PRESENT: other - Perineal abscess approximately 3 cm in diameter Plan Discharge Plan: Discharge home Time Spent: Less than 30 Minutes
[2017-08-17 11:45] VITALS: BP 113/87
[2017-08-17] MEDS ORDERED: TRAZODONE HCL 50 MG TABLET PO SCH (22:00)
[2017-08-17] MEDS ORDERED: DOXAZOSIN MESYLATE 4 MG TABLET PO SCH (22:00)
== END 2017-08-17 12:18 | disposition home or self-care (01) ==
LOC: ER 10:05 → EH 12:42 → 4S 15:07
PROVIDERS: ADMIT Transplant Surgery; ATTEND Transplant Surgery
PROC: 0H99XZZ Drainage of Perineum Skin, External Approach (ICD-10-PCS; principal; 2017-08-16 13:15)
PROC: 3E0234Z Introduction of Serum, Toxoid and Vaccine into Muscle, Percutaneous Approach (ICD-10-PCS; 2017-08-17)
DX: L02.215 Cutaneous abscess of perineum (principal); C18.9 Malignant neoplasm of colon, unspecified; F17.290 Nicotine dependence, other tobacco product, uncomplicated; Z23 Encounter for immunization
CPT/HCPCS: 99285; 36415; 87205; 87070; 85025; 87075; 87077; 80053; 90686; 10060; G0378 ×2; A6266; J2250; J1100; J3010; A9270 ×4; J2270; J0330; J0696; J2405; J2704; J0131; J3490 ×2; 902; 90471; G0008

== ENCOUNTER 2017-11-23 14:29 | Inpatient (IN) | payer MEDICARE, OTHER ==
--- NOTE | 2017-11-23 15:06 | ER Document Report ---
ED Medical Screen (RME) - General Chief Complaint: Post Surgical Pain Stated Complaint: SURGICAL PROBLEM Time Seen by Provider: 11/23/17 14:57 Notes: 51-year-old male patient with colon cancer who had bilateral ureteral stents for quite some time, in June of this year bilateral nephrostomy tubes were placed. He went back up to [place] on 11/20/2017 to have the nephrostomy tubes changed and at that time he had new tubes he says reinserted through the same openings. He also had the 2 ureteral stents removed on the same day. He reports this morning he noted that the left nephrostomy tube was not draining any does have a little discomfort on the left side. He sees Dr. Nunes locally for primary care, he is followed at [facility] for oncology and urology. I have greeted and performed a rapid initial assessment of this patient. A comprehensive ED assessment and evaluation of the patient, analysis of test results and completion of the medical decision making process will be conducted by additional ED providers. TRAVEL OUTSIDE OF THE [place] IN LAST 30 DAYS: No - Related Data Allergies/Adverse Reactions: No Known Allergies Allergy (Verified 11/23/17 14:33) Past Medical History - Social History Chew tobacco use (# tins/day): No Frequency of alcohol use: Occasional Drug Abuse: None - Past Medical History Cardiac Medical History: Denies: Hx Heart Attack, Hx Hypertension Pulmonary Medical History: Reports: Hx Sleep Apnea - Patient has CPAP but doesnt use it Denies: Hx Asthma, Hx Bronchitis, Hx COPD, Hx Pneumonia, Hx Respiratory Failure, Hx Tuberculosis Neurological Medical History: Denies: Hx Seizures Renal/ Medical History: Denies: Hx Peritoneal Dialysis Malignancy Medical History: Reports Hx Colorectal Cancer GI Medical History: Denies: Hx Gastroesophageal Reflux Disease, Hx Hiatal Hernia , Hx Pancreatitis, Hx Ulcer Musculoskeltal Medical History: Denies Hx Arthritis Psychiatric Medical History: Reports: Hx Depression, Hx Post Traumatic Stress Disorder Denies: Hx Bipolar Disorder, Hx Schizophrenia Past Surgical History: Reports: Hx Kidney (Renal Surgery) - bilat stents q 6months, Hx Rectal Surgery - colorectal resection; colostomy. Denies: Hx Appendectomy, Hx Bowel Surgery, Hx Cholecystectomy, Hx Open Heart Surgery, Hx Tonsillectomy - Immunizations Hx Diphtheria, Pertussis, Tetanus Vaccination: Yes History of Influenza Vaccine for 04/2017 - 09/2017 Season: No Physical Exam - Vital signs Vitals: Temp Pulse Resp BP Pulse Ox 98.1 F 100 17 108/67 96 11/23/17 14:47 11/23/17 14:47 11/23/17 14:47 11/23/17 14:47 11/23/17 14:47 Course - Vital Signs Vital signs: Temp Pulse Resp BP Pulse Ox 98.1 F 100 17 108/67 96 11/23/17 14:47 11/23/17 14:47 11/23/17 14:47 11/23/17 14:47 11/23/17 14:47
[2017-11-23 15:45] LABS: HEMATOCRIT 32.7 % (37.9-51.0); HEMOGLOBIN 10.7 g/dL (13.5-17.0); MEAN CORPUSCULAR HEMOGLOBIN 27.7 pg (27.0-33.4); MEAN CORPUSCULAR HGB CONC 32.6 g/dL (32.0-36.0); MEAN CORPUSCULAR VOLUME 85 fl (80-97); PLATELET COUNT 423 10^3/uL (150-450); RED BLOOD COUNT 3.85 10^6/uL (4.35-5.55); RED CELL DISTRIBUTION WIDTH 14.6 % (11.5-14.0); WHITE BLOOD COUNT 26.2 10^3/uL (4.0-10.5)
[2017-11-23 15:57] LABS: ALANINE AMINOTRANSFERASE 24 U/L (21-72); ALBUMIN 3.4 g/dL (3.5-5.0); ALKALINE PHOSPHATASE 134 U/L (38-126); ANION GAP 13 (5-19); ASPARTATE AMINO TRANSFERASE 17 U/L (17-59); BILIRUBIN,DIRECT 0.3 mg/dL (0.0-0.4); BILIRUBIN,TOTAL 0.3 mg/dL (0.2-1.3); BLOOD UREA NITROGEN 20 mg/dL (7-20); CALCIUM 10.4 mg/dL (8.4-10.2); CARBON DIOXIDE 26 mmol/L (22-30); CHLORIDE 101 mmol/L (98-107); GLUCOSE 103 mg/dL (75-110); POTASSIUM 4.4 mmol/L (3.6-5.0); SODIUM 139.9 mmol/L (137-145); TOTAL PROTEIN 6.8 g/dL (6.3-8.2)
[2017-11-23 16:17] LABS: ABSOLUTE LYMPHOCYTES# (MANUAL) 1.3 10^3/uL (0.5-4.7); ABSOLUTE MONOCYTES # (MANUAL) 0.8 10^3/uL (0.1-1.4); ABSOLUTE NEUTROPHILS# (MANUAL) 24.1 10^3/uL (1.7-8.2); BASOPHILS % (MANUAL) 0 % (0-2); EOSINOPHILS % (MANUAL) 0 % (0-6); LYMPHOCYTES % (MANUAL) 5 % (13-45); MONOCYTES % (MANUAL) 3 % (3-13); SEGMENTED NEUTROPHILS % (MAN) 92 % (42-78); TOTAL CELLS COUNTED 100
[2017-11-23 16:19] LABS: ANISOCYTOSIS SLIGHT; OVALOCYTES SLIGHT; PLATELET CLUMPS PRESENT; PLATELET COMMENT ADEQUATE; PLATELET LARGE PRESENT; POIKILOCYTOSIS SLIGHT
[2017-11-23 17:07] LABS: APPEARANCE,URINE CLEAR; BILIRUBIN,URINE NEGATIVE (NEGATIVE); GLUCOSE, URINE NEGATIVE (NEGATIVE); KETONES,URINE NEGATIVE (NEGATIVE); LEUKOCYTE ESTERASE,URINE MODERATE (NEGATIVE); NITRITE,URINE NEGATIVE (NEGATIVE); PROTEIN,URINE >=500 mg/dL (NEGATIVE); URINE SPECIFIC GRAVITY 1.023; UROBILINOGEN,URINE NEGATIVE mg/dL (<2.0)
[2017-11-23 17:08] LABS: COLOR,URINE YELLOW
--- NOTE | 2017-11-23 17:15 | RADIOLOGY REPORT (SQ) ---
EXAM DESCRIPTION: CHEST SINGLE VIEW COMPLETED DATE/TIME: 11/23/2017 5:07 pm REASON FOR STUDY: WBC count COMPARISON: 2012. NUMBER OF VIEWS: One view. TECHNIQUE: Single frontal radiographic view of the chest acquired. LIMITATIONS: None. FINDINGS: LUNGS AND PLEURA: No opacities, masses or pneumothorax. No pleural effusion. MEDIASTINUM AND HILAR STRUCTURES: No masses. Contour normal. HEART AND VASCULAR STRUCTURES: Heart normal in size. Normal vasculature. BONES: No acute findings. HARDWARE: Right port. OTHER: No other significant finding. IMPRESSION: NO SIGNIFICANT RADIOGRAPHIC FINDING IN THE CHEST. TECHNICAL DOCUMENTATION: JOB ID: [id number] [employer]- All Rights Reserved Reading location - IP/workstation name: [email or web address]
[2017-11-23] MEDS ORDERED: CEFTRIAXONE 1 GM/D5W RTU 50 ML IV ONE (17:46)
--- NOTE | 2017-11-23 17:46 | ER Document Report ---
ED General - General Chief Complaint: Post Surgical Pain Stated Complaint: SURGICAL PROBLEM Time Seen by Provider: 11/23/17 14:57 Notes: Patient is a 51-year-old male with past medical history significant for colon cancer status post resection with end ostomy and radiation. Patient states that he had scar tissue of bilateral ureters requiring stent placement of bilateral nephrostomy tubes. Patient states that he recently had stents removed and the nephrostomy tubes replaced last . His admits that he was also initiated on Lovenox for a DVT diagnosed in his right lower extremity. The states that over the course of the weekend he noticed hematuria in his right nephrostomy bag and decrease in output and the left nephrostomy. His states that she was trying to irrigate the left nephrostomy at home without much improvement and has not been able to drink today. At this time the patient denies any discomfort. States that his pain is equivalent with his baseline. Denies any fevers or chills. Primary care is with Dr. Nunes. Had this procedure with [facility] OF THE [place] IN LAST 30 DAYS: No - Related Data Allergies/Adverse Reactions: No Known Allergies Allergy (Verified 11/23/17 14:33) Past Medical History - Social History Smoking Status: Former Smoker Chew tobacco use (# tins/day): No Frequency of alcohol use: Occasional Drug Abuse: None Family History: Reviewed & Not Pertinent Patient has suicidal ideation: No Patient has homicidal ideation: No - Past Medical History Cardiac Medical History: Denies: Hx Heart Attack, Hx Hypertension Pulmonary Medical History: Reports: Hx Sleep Apnea - Patient has CPAP but doesnt use it Denies: Hx Asthma, Hx Bronchitis, Hx COPD, Hx Pneumonia, Hx Respiratory Failure, Hx Tuberculosis Neurological Medical History: Denies: Hx Seizures Renal/ Medical History: Denies: Hx Peritoneal Dialysis Malignancy Medical History: Reports Hx Colorectal Cancer GI Medical History: Denies: Hx Gastroesophageal Reflux Disease, Hx Hiatal Hernia , Hx Pancreatitis, Hx Ulcer Musculoskeltal Medical History: Denies Hx Arthritis Psychiatric Medical History: Reports: Hx Depression, Hx Post Traumatic Stress Disorder Denies: Hx Bipolar Disorder, Hx Schizophrenia Past Surgical History: Reports: Hx Kidney (Renal Surgery) - bilat stents q 6months, Hx Rectal Surgery - colorectal resection; colostomy. Denies: Hx Appendectomy, Hx Bowel Surgery, Hx Cholecystectomy, Hx Open Heart Surgery, Hx Tonsillectomy - Immunizations Hx Diphtheria, Pertussis, Tetanus Vaccination: Yes Review of Systems - Review of Systems Constitutional: No symptoms reported Cardiovascular: No symptoms reported Respiratory: No symptoms reported Gastrointestinal: No symptoms reported Genitourinary: See HPI Musculoskeletal: No symptoms reported Hematologic/Lymphatic: See HPI -: Yes All other systems reviewed and negative Physical Exam - Vital signs Vitals: Temp Pulse Resp BP Pulse Ox 98.1 F 100 17 108/67 96 11/23/17 14:47 11/23/17 14:47 11/23/17 14:47 11/23/17 14:47 11/23/17 14:47 - Notes Notes: PHYSICAL EXAM GENERAL: Alert, interacts well. HEAD: Normocephalic, atraumatic. EYES: Pupils equal, round, and reactive to light. Extraocular movements intact. ENT: Oral mucosa moist, tongue midline. NECK: Full range of motion. Supple. Trachea midline. LUNGS: Clear to auscultation bilaterally, no wheezes, rales, or rhonchi. No respiratory distress. HEART: Regular rate and rhythm. No murmurs, gallops, or rubs. ABDOMEN: Soft, nondistended, nontender. No guarding, rebound, or rigidity.. Bowel sounds present in all 4 quadrants. Back: Negative for CVA tenderness bilaterally. No superficial tenderness of the skin surrounding it bilateral nephrostomy tubes no evidence of erythema. Left nephrostomy tube with visible occlusion of blood clot within the tubing. Right nephrostomy bag with evidence of bright red hematuria without any evidence of clots EXTREMITIES: Moves all 4 extremities spontaneously. No edema, radial and dorsalis pedis pulses 2/4 bilaterally. No cyanosis. NEUROLOGICAL: Alert and oriented x4. Normal speech. PSYCH: Normal affect, normal mood. SKIN: Warm, dry, normal turgor. No rashes or lesions noted. Course - Re-evaluation Re-evalutation: 11/23/17 17:45 Patient is a 51-year-old male symptomatically stable, no acute distress afebrile. CBC with evidence of leukocytosis without associated anemia. Chemistry with evidence of stable kidney function. Reviewed case with urologist on-call who recommends having the patient consulted with IR for a irrigation and possible replacement of left nephrostomy tube. I did review the case with on-call public health training assistant Rick who will be here tomorrow who agrees that they will be able to complete this procedure. Patient has been accepted for admission under Dr. Engle who is on-call for Dr. Nunes. Did review with him that he possibly has an underlying pyelonephritis given elevated white blood cell count and presence of pyuria on right nephrostomy urinalysis. Discussed with patient and his at the bedside that he will be admitted for IV antibiotics and IR procedure tomorrow. He agrees with plan. - Vital Signs Vital signs: Temp Pulse Resp BP Pulse Ox 98.1 F 100 17 108/67 96 11/23/17 14:47 11/23/17 14:47 11/23/17 14:47 11/23/17 14:47 11/23/17 14:47 - Laboratory Result Diagrams: 11/23/17 15:20 11/23/17 15:20 Laboratory results interpreted by me: 11/23/17 11/23/17 11/23/17 15:20 15:20 16:35 WBC 26.2 H RBC 3.85 L Hgb 10.7 L Hct 32.7 L RDW 14.6 H Seg Neuts % (Manual) 92 H Lymphocytes % (Manual) 5 L Abs Neuts (Manual) 24.1 H Calcium 10.4 H Alkaline Phosphatase 134 H Albumin 3.4 L Urine Protein >=500 H Urine Blood MODERATE H Ur Leukocyte Esterase MODERATE H Discharge - Discharge Clinical Impression: Obstructed nephrostomy tube, Pyelonephritis Condition: Good Disposition: ADMITTED INPATIENT Admitting Provider: Kadie Unit Admitted: Medical Floor
[2017-11-23] MEDS ORDERED: CEFTRIAXONE INJ 1000 MG VIAL IV ONE (18:32)
[2017-11-23] MEDS ORDERED: MORPHINE SULFATE 10 MG/ML INJ IV ONE (18:54)
[2017-11-23] MEDS ORDERED: HYDROCODONE/ACETAMINOPHEN 7.5-325 MG TABLET PO ONE (18:56)
[2017-11-23] MEDS: TRAZODONE HCL 50 MG TABLET PO PRN (22:37)
[2017-11-23] MEDS: HYDROCODONE/ACETAMINOPHEN 7.5-325 MG TABLET PO PRN (22:38)
[2017-11-24] MEDS: DOXAZOSIN MESYLATE 4 MG TABLET PO SCH ×2 (00:17→22:11)
[2017-11-24] MEDS: ACETAMINOPHEN 325 MG TABLET PO PRN ×2 (00:53→08:58)
[2017-11-24] MEDS: HYDROCODONE/ACETAMINOPHEN 7.5-325 MG TABLET PO PRN (05:28)
[2017-11-24] MEDS: BUPROPION HCL 75 MG TABLET PO SCH ×2 (09:08→18:32)
[2017-11-24] MEDS ORDERED: CEFTRIAXONE 1 GM/D5W RTU 1 GM/50 ML RTUPB IV SCH (10:00)
[2017-11-24] MEDS ORDERED: ENOXAPARIN SODIUM INJ 100 MG/1 ML DISP.SYRIN SUBCUT SCH (10:00)
[2017-11-24 10:15] LABS: HEMOGLOBIN 10.3 g/dL (13.5-17.0); MEAN CORPUSCULAR HEMOGLOBIN 27.3 pg (27.0-33.4); MEAN CORPUSCULAR HGB CONC 32.1 g/dL (32.0-36.0); MEAN CORPUSCULAR VOLUME 85 fl (80-97); PLATELET COUNT 452 10^3/uL (150-450); RED BLOOD COUNT 3.76 10^6/uL (4.35-5.55); RED CELL DISTRIBUTION WIDTH 14.6 % (11.5-14.0); WHITE BLOOD COUNT 18.3 10^3/uL (4.0-10.5)
--- NOTE | 2017-11-24 10:21 | HISTORY AND PHYSICAL E ---
History and Physical NAME: MEE MACIAS : 1965 AGE: 51Y ADMITTED: 11/23/2017 ROOM: 330 CHIEF COMPLAINT: Postsurgical pain. HISTORY OF PRESENT ILLNESS: This is a 51-year-old male with a significant history of the colon cancer, stage 4, status post resection with colostomy and radiation. Patient stated that he had scar tissue of the bilateral ureters requiring a stent placement with bilateral nephrostomy tubes which was done last week at [facility]. Patient stated that he recently had a stent removed and the nephrostomy tube was placed last . His admits that he was also initiated with Lovenox for DVT prophylaxis, and the right lower extremity DVT was found on Friday and he started the treatment on . Patient was initially on heparin. Patient currently follows with all treatment at [facility]. Patient's overall course over the weekend was noticed hematuria in his right nephrostomy tube and decreased output in the left nephrostomy tube. His stated that she was trying to irrigate with the nephrostomy tube at home without much improvement and has not been able to drain today. At this time the patient denied any chest pain, denied any shortness of the breath. Initial assessment was by urologist transition coach, Dr. Magaña, who recommended to have patient consult with the IR for irrigation and possible replacement of the left nephrostomy tube. The patient at this point was admitted in our hospital, so when I saw the patient in the morning patient's white count was elevated at 26,000. Patient is currently on IV antibiotics and was given 1 dose. Patient was actually consulted by the IR radiologist, and the urologist is awaiting for the consult today. Patient's is at the bedside, denied any other new issues. Patient currently denies any chest pain, denies any shortness of breath. PAST MEDICAL HISTORY: History of the colon cancer, status post surgery and radiation, currently on immunotherapy every 3 weeks. Patient has a history of obstructive sleep apnea and has CPAP but does not use it. PAST SURGICAL HISTORY: History of the renal stent placements, currently with bilateral nephrostomy tubes. History of the colorectal surgeries and colostomies for the colon cancer. ALLERGIES: No known drug allergies. CURRENT HOME MEDICATIONS: 1. Currently taking just the pain medications. 2. Patient is currently on Lovenox twice a day. 3. Trazodone 100 mg at bedtime. 4. Cardura 4 mg p.o. daily. 5. Wellbutrin 75 mg p.o. twice daily. 6. Tylenol p.r.n. REVIEW OF SYSTEMS: As above. All other pertinents negative. PHYSICAL EXAMINATION: VITAL SIGNS: Blood pressure is 135/83, temperature is 98.4, pulse is 60, O2 sat is 99% on room air. GENERAL: Patient is alert, awake, oriented x3. HEAD AND NECK: Normocephalic. PERRL. LUNGS: No wheezing, no rales, no rhonchi. HEART: S1 and S2 is present. ABDOMEN: Soft. Bowel sounds are present. No guarding. No rigidity. BACK: Negative for CVA tenderness. There are bilateral nephrostomy tubes currently draining with some red-tinged colors. EXTREMITIES: No edema. NEUROLOGIC: No focal weaknesses. Patient moves all 4 extremities. LABORATORY STUDIES: WBC is 26.2, hemoglobin is 10.7, and platelets are 423, segments 92, lymphocytes 5. On patient's chemistry, sodium is 139, potassium is 4.4, BUN is 20, creatinine is 0.91, AST and ALT are within normal limits, albumin is 3.4. Urine has moderate blood, moderate leuk esterase. Stool occult blood is negative. ASSESSMENT: 1. Obstructive nephrostomy tube. 2. Possible pyelonephritis with elevated leukocytosis. 3. Stage 4 colon cancer, status post surgery and radiation. 4. Depression and anxiety. 5. Right lower extremity deep venous thrombosis. PLAN: Admit the patient, currently in the IMCU, currently on IV antibiotics. Repeat the CBC and chem-7. Wait for the urine culture and blood cultures. Currently wait for the urologist's and the radiologist's consultations. Plan was discussed with the patient and the . We will see what the radiologist and urologist state. If the patient continues to be having problems we may discuss with the patient's oncologist at [facility] and possible transfer over there if the current problems are not resolved here and all resources are out. More than 35 minutes were spent examining the patient. DICTATING PHYSICIAN: LOUISA BARRAGAN M.D. [id number] PHY#: [id number] ID: [id number] JOB#: [id number] ACCT: [id number] cc:IVONE COONEY M.D. >
[2017-11-24 10:29] LABS: ANION GAP 12 (5-19); BLOOD UREA NITROGEN 21 mg/dL (7-20); CALCIUM 10.3 mg/dL (8.4-10.2); CARBON DIOXIDE 26 mmol/L (22-30); CHLORIDE 101 mmol/L (98-107); GLUCOSE 105 mg/dL (75-110); POTASSIUM 4.3 mmol/L (3.6-5.0); SODIUM 138.9 mmol/L (137-145)
[2017-11-24 10:37] LABS: ABSOLUTE LYMPHOCYTES# (MANUAL) 0.9 10^3/uL (0.5-4.7); ABSOLUTE MONOCYTES # (MANUAL) 1.1 10^3/uL (0.1-1.4); ABSOLUTE NEUTROPHILS# (MANUAL) 16.3 10^3/uL (1.7-8.2); BASOPHILS % (MANUAL) 0 % (0-2); EOSINOPHILS % (MANUAL) 0 % (0-6); LYMPHOCYTES % (MANUAL) 5 % (13-45); MONOCYTES % (MANUAL) 6 % (3-13); SEGMENTED NEUTROPHILS % (MAN) 89 % (42-78); TOTAL CELLS COUNTED 100
[2017-11-24 10:40] LABS: ANISOCYTOSIS SLIGHT; PLATELET COMMENT INCREASED
--- NOTE | 2017-11-24 12:33 | PDOC CONSULTATION ---
Consultation Consult Date: 11/24/17 Attending physician:: TERRY LOPEZ History of Present Illness Admission Date/PCP: 11/23/17 18:01 bilateral nephrostomy tube ,left not draining as before History of Present Illness: MEE MACIAS is a 51 year old male with bilateral nephrostomy tubes , left was not draining as well, coming for evaluation Past Medical History Cardiac Medical History: Denies: Myocardial Infarction, Hypertension Pulmonary Medical History: Reports: Sleep Apnea - Patient has CPAP but doesnt use it Denies: Asthma, Bronchitis, Chronic Obstructive Pulmonary Disease (COPD), Pneumonia, Respiratory Failure, Tuberculosis Neurological Medical History: Denies: Seizures Malignancy Medical History: Reports: Colorectal Cancer GI Medical History: Denies: Gastroesophageal Reflux Disease, Hiatal Hernia Musculoskeltal Medical History: Denies: Arthritis Psychiatric Medical History: Reports: Depression, Post Traumatic Stress Disorder Denies: Bipolar Disorder Hematology: Denies: Anemia, Sickle Cell Disease Past Surgical History Past Surgical History: Denies: Appendectomy, Cholecystectomy, Tonsillectomy Social History Smoking Status: Former Smoker Number of Years Smokin Frequency of Alcohol Use: Occasional Hx Recreational Drug Use: No Drugs: None Hx Prescription Drug Abuse: No Family History Family History: Reviewed & Not Pertinent Parental Family History Reviewed: No Children Family History Reviewed: No Sibling(s) Family History Reviewed.: No Medication/Allergy Allergies/Adverse Reactions: No Known Allergies Allergy (Verified 11/23/17 14:33) Physical Exam Vital Signs: Temp Pulse Resp BP Pulse Ox 98.4 F 117 H 16 135/83 H 99 11/24/17 08:41 11/24/17 08:41 11/24/17 08:41 11/24/17 08:41 11/24/17 08:41 Intake & Output 11/23/17 11/24/17 11/25/17 06:59 06:59 06:59 Intake Total 470 Balance 470 Weight 90.8 kg Results Laboratory Results: 11/24/17 09:50 11/24/17 09:50 11/24/17 11/24/17 11/24/17 09:50 09:50 09:50 WBC 18.3 H RBC 3.76 L Hgb 10.3 L Hct 32.0 L MCV 85 MCH 27.3 MCHC 32.1 RDW 14.6 H Plt Count 452 H Seg Neutrophils % Not Reportable Lymphocytes % Not Reportable Monocytes % Not Reportable Eosinophils % Not Reportable Basophils % Not Reportable Absolute Neutrophils Not Reportable Absolute Lymphocytes Not Reportable Absolute Monocytes Not Reportable Absolute Eosinophils Not Reportable Absolute Basophils Not Reportable Sodium 138.9 Potassium 4.3 Chloride 101 Carbon Dioxide 26 Anion Gap 12 BUN 21 H Creatinine 1.01 Est GFR ( Amer) > 60 Est GFR (Non-Af Amer) > 60 Glucose 105 Lactic Acid 0.8 Calcium 10.3 H Impressions: Chest X-Ray 11/23/17 16:24 IMPRESSION: NO SIGNIFICANT RADIOGRAPHIC FINDING IN THE CHEST. Assessment & Plan - Diagnosis (1) Pyelonephritis Is this a current diagnosis for this admission?: Yes - Plan Summary Plan Summary: consult interventional radiology to evaluate the nephrostomy tube posotions
[2017-11-24] MEDS: MORPHINE SULFATE 10 MG/ML INJ IV PRN ×2 (13:59→20:13)
[2017-11-24] MEDS: NORMAL SALINE 1000 ML 1,000 ML IV PRN (13:59)
--- NOTE | 2017-11-24 15:19 | RADIOLOGY REPORT (SQ) ---
EXAM DESCRIPTION: INJECT EXISTING/TUBE PLACEMENT COMPLETED DATE/TIME: 11/24/2017 12:25 pm REASON FOR STUDY: bilateral nephrostomy tube checks COMPARISON: None. FLUOROSCOPY TIME: 51 seconds 8 images saved to PACS. TECHNIQUE: Injection of contrast through existing catheter. Fluoroscopic spot films saved to PACS d emonstrating final catheter position. LIMITATIONS: None. FINDINGS: CONTRAST INJECTED: 20 cc Isovue. TUBE POSITION: Bilateral percutaneous nephrostomies are patent. Dilated collecting systems bilateral ly. IMPRESSION: Bilateral patent nephrostomies. COMMENT: Quality ID [id number]: Final reports for procedures using fluoroscopy that document radiation exp osure indices, or exposure time and number of fluorographic images (if radiation exposure indices are not available) TECHNICAL DOCUMENTATION: JOB ID: [id number] [employer]- All Rights Reserved Reading location - IP/workstation name: [email or web address]
[2017-11-24] MEDS: HYDROCODONE/ACETAMINOPHEN 5-325 MG TABLET PO PRN ×2 (16:01→22:51)
[2017-11-24] MEDS ORDERED: CEFTRIAXONE SODIUM 1,000 MG in DEXTROSE 5%-WATER 50 ML IV SCH (18:00)
--- NOTE | 2017-11-24 18:17 | RADIOLOGY REPORT (SQ) ---
EXAM DESCRIPTION: CT ABD/PELVIS NO ORAL OR IV COMPLETED DATE/TIME: 11/24/2017 5:47 pm REASON FOR STUDY: pylonephritis COMPARISON: 03/24/2016 TECHNIQUE: CT scan of the abdomen and pelvis performed without intravenous or oral contrast. Images reviewed with lung, soft tissue, and bone windows. Reconstructed coronal and sagittal MPR images revi ewed. All images stored on PACS. All CT scanners at this facility use dose modulation, iterative reconstruction, and/or weight based d osing when appropriate to reduce radiation dose to as low as reasonably achievable (ALARA). [facility]: Dose Right [facility]: CareDose [facility]: Dose Right [facility]: Teradose 4D [facility]: Smart LogoGrab RADIATION DOSE: CT Rad equipment meets quality standard of care and radiation dose reduction techniq ues were employed. CTDIvol: 10.9 mGy. DLP: 598 mGy-cm.mGy. LIMITATIONS: None. FINDINGS: LOWER CHEST: No significant findings. No nodules or infiltrates. NON-CONTRASTED LIVER, SPLEEN, ADRENALS: Evaluation limited by lack of IV contrast. Similar bilateral adrenal nodularity. PANCREAS: No masses or ductal dilatation identified. GALLBLADDER: No identified stones by CT criteria. No inflammatory changes to suggest cholecystitis. RIGHT KIDNEY AND URETER: Moderate-severe Hydronephrosis with a posterior percutaneous proximal ureter al stent. Moderate adjacent inflammation is present in the retroperitoneal-pararenal fat. LEFT KIDNEY AND URETER: Severe hydroureteronephrosis to the level of the mid left ureter were there i s adjacent soft tissue thickening -stranding. There is an upper pole posterior percutaneous stent. . AORTA AND RETROPERITONEUM: No aneurysm. Moderate adjacent inflammation is present in the right retrop eritoneal-pararenal -duodenal fat. BOWEL AND PERITONEAL CAVITY: Moderate inflammatory changes adjacent to the duodenum. No evidence for bowel obstruction. Surgical changes in the left lower quadrant bowel with ostomy. APPENDIX: Not visualized. PELVIS, BLADDER, AND ABDOMINAL WALL:14 cm mass centered in the right pelvis with bony erosions in the anterior cortex of the right iliac bone. There is a 2nd 8 cm mass in the presacral location with ly tic changes in the anterior cortex at the S1 and S2 levels. Both masses shows some internal calcific ations. Moderate soft tissue density and stranding throughout the pelvis adjacent to the masses. Th e bladder is decompressed with thickened irregular alvarez. BONES: 14 cm mass centered in the right pelvis with bony erosions in the anterior cortex of the right iliac bone. There is a 2nd 8 cm mass in the presacral location with lytic changes in the anterior c ortex at the S1 and S2 levels. OTHER: No other significant finding. IMPRESSION: New 14 cm mass centered in the right pelvis with bony erosions in the anterior cortex of the right iliac bone. There is a 2nd new 8 cm mass in the presacral location with lytic changes in the anterior cortex at the S1 and S2 levels. Moderate adjacent inflammation is present in the right retroperitoneal-pararenal -duodenal fat. Bila teral hydronephrosis and proximal stents. COMMENT: Quality ID # [id number]: Final reports with documentation of one or more dose reduction techniques (e.g., Automated exposure control, adjustment of the mA and/or kV according to patient size, use of iterative reconstruction technique) TECHNICAL DOCUMENTATION: JOB ID: [id number] [employer]- All Rights Reserved Reading location - IP/workstation name: [email or web address]
[2017-11-24] MEDS: CEFEPIME 1 GM/D5W RTU 1 GM/50 ML RTUPB IV SCH (22:11)
[2017-11-24] MEDS: ENOXAPARIN SODIUM INJ 60 MG/0.6 ML DISP.SYRIN SUBCUT SCH (22:11)
[2017-11-25] MEDS: MORPHINE SULFATE 10 MG/ML INJ IV PRN ×3 (02:11→20:58)
[2017-11-25] MEDS: TRAZODONE HCL 50 MG TABLET PO PRN (02:59)
[2017-11-25 05:51] LABS: ABSOLUTE BASOPHILS # (AUTO) 0.1 10^3/uL (0.0-0.2); ABSOLUTE EOSINOPHILS # (AUTO) 0.1 10^3/uL (0.0-0.6); ABSOLUTE LYMPHOCYTES (AUTO) 1.1 10^3/uL (0.5-4.7); ABSOLUTE MONOCYTES (AUTO) 1.3 10^3/uL (0.1-1.4); ABSOLUTE NEUT (AUTO) 10.5 10^3/uL (1.7-8.2); BASOPHILS % (AUTO) 0.7 % (0-2); EOSINOPHILS % (AUTO) 0.7 % (0-6); HEMATOCRIT 29.4 % (37.9-51.0); HEMOGLOBIN 9.6 g/dL (13.5-17.0); INTERNATIONAL RATION (INR) 1.09; LYMPHOCYTES % (AUTO) 8.5 % (13-45); MEAN CORPUSCULAR HEMOGLOBIN 27.5 pg (27.0-33.4); MEAN CORPUSCULAR HGB CONC 32.6 g/dL (32.0-36.0); MEAN CORPUSCULAR VOLUME 84 fl (80-97); MONOCYTES % (AUTO) 10.1 % (3-13); PLATELET COUNT 409 10^3/uL (150-450); PROTHROMBIN TIME 14.7 SEC (11.4-15.4); RED BLOOD COUNT 3.49 10^6/uL (4.35-5.55); RED CELL DISTRIBUTION WIDTH 14.4 % (11.5-14.0); TOTAL CELLS COUNTED % (AUTO) 100 %; WHITE BLOOD COUNT 13.1 10^3/uL (4.0-10.5)
[2017-11-25 05:52] LABS: PARTIAL THROMBOPLASTIN TIME 50.2 SEC (23.5-35.8)
[2017-11-25 06:09] LABS: ANION GAP 12 (5-19); BLOOD UREA NITROGEN 21 mg/dL (7-20); CALCIUM 9.9 mg/dL (8.4-10.2); CARBON DIOXIDE 25 mmol/L (22-30); CHLORIDE 103 mmol/L (98-107); GLUCOSE 116 mg/dL (75-110); POTASSIUM 4.6 mmol/L (3.6-5.0); SODIUM 139.8 mmol/L (137-145)
[2017-11-25] MEDS: HYDROCODONE/ACETAMINOPHEN 5-325 MG TABLET PO PRN ×3 (08:37→23:12)
--- NOTE | 2017-11-25 08:44 | PDOC CONSULTATION ---
Consultation Consult Date: 11/25/17 Attending physician:: LOUISA BARRAGAN Consult reason:: Stage IV colon cancer, right lower extremity DVT, hydronephrosis status post nephrostomy tube placement. History of Present Illness Admission Date/PCP: 11/23/17 18:01 Patient complains of: Hematuria from nephrostomy tube, DVT, colon cancer History of Present Illness: MEE MACIAS is a 51 year old male with long-standing history of stage IV colon cancer, has been treated by Dr. Brandan Baez of [facility], immune oncology division, for several years patient has been on clinical trial with nivolumab, recently has had progression of disease, it sounds like specifically patient has had compression from tumor that is going into the right psoas, and I believe that is also what is causing the hydronephrosis. In about 2 months ago he was switched to Ipilumumab + Nivolumab, he was supposed to have another dose of treatment last week, he went to [place] on for treatment, there he was found to have right leg pain and swelling, he was diagnosed by ultrasound with a right lower extremity DVT, he was placed on Lovenox 80 mg subcu twice a day, about 24 hours after Lovenox placement he began having diffuse hematuria from the nephrostomy tube, he was admitted here, he was seen by both interventional radiology as well as urology, the nephrostomy tubes were functioning appropriately. Urology suggested a lower dose of Lovenox. Patient is currently on 60 mg twice daily. Past Medical History Cardiac Medical History: Denies: Myocardial Infarction, Hypertension Pulmonary Medical History: Reports: Sleep Apnea - Patient has CPAP but doesnt use it Denies: Asthma, Bronchitis, Chronic Obstructive Pulmonary Disease (COPD), Pneumonia, Respiratory Failure, Tuberculosis Neurological Medical History: Denies: Seizures Malignancy Medical History: Reports: Colorectal Cancer GI Medical History: Denies: Gastroesophageal Reflux Disease, Hiatal Hernia Musculoskeltal Medical History: Denies: Arthritis Psychiatric Medical History: Reports: Depression, Post Traumatic Stress Disorder Denies: Bipolar Disorder Hematology: Denies: Anemia, Sickle Cell Disease Past Surgical History Past Surgical History: Denies: Appendectomy, Cholecystectomy, Tonsillectomy Social History Smoking Status: Former Smoker Number of Years Smokin Frequency of Alcohol Use: Occasional Hx Recreational Drug Use: No Drugs: None Hx Prescription Drug Abuse: No - Advance Directive Resuscitation Status: Full Code Family History Family History: Reviewed & Not Pertinent Parental Family History Reviewed: Yes Children Family History Reviewed: Yes Sibling(s) Family History Reviewed.: Yes Medication/Allergy Home Medications: Cyclobenzaprine HCl [Flexeril 10 mg Tablet] 10 mg PO Q8HP PRN 11/24/17 Enoxaparin Sodium [Lovenox Inj 100 mg/1 ml Disp.syrin] 100 mg SQ BID 11/24/17 Gabapentin [Neurontin] 800 mg PO Q8 11/24/17 Hydrocodone/Acetaminophen [Hydrocodone-Acetamin 10-325 mg] 1 tab PO Q8HP PRN 02/04 Naproxen [Naprosyn] 500 mg PO Q12HP PRN 11/24/17 Allergies/Adverse Reactions: No Known Allergies Allergy (Verified 11/23/17 14:33) Review of Systems Constitutional: ABSENT: chills, fever(s), headache(s), weight gain, weight loss Eyes: ABSENT: visual disturbances Ears: ABSENT: hearing changes Cardiovascular: ABSENT: chest pain, dyspnea on exertion, edema, orthropnea, palpitations Respiratory: ABSENT: cough, hemoptysis Gastrointestinal: ABSENT: abdominal pain, constipation, diarrhea, hematemesis, hematochezia, nausea, vomiting Genitourinary: ABSENT: dysuria, hematuria Musculoskeletal: ABSENT: joint swelling Integumentary: ABSENT: rash, wounds Neurological: ABSENT: abnormal gait, abnormal speech, confusion, dizziness, focal weakness, syncope Psychiatric: ABSENT: anxiety, depression, homidical ideation, suicidal ideation Endocrine: ABSENT: cold intolerance, heat intolerance, polydipsia, polyuria Hematologic/Lymphatic: ABSENT: easy bleeding, easy bruising Physical Exam Vital Signs: Temp Pulse Resp BP Pulse Ox 98.6 F 115 H 16 114/70 99 11/25/17 03:15 11/25/17 07:00 11/25/17 03:15 11/25/17 03:15 11/25/17 03:15 Intake & Output 11/24/17 11/25/17 11/26/17 06:59 06:59 06:59 Intake Total 470 1700 Balance 470 1700 Weight 90.8 kg 93.8 kg General appearance: PRESENT: no acute distress, well-developed, well-nourished Head exam: PRESENT: atraumatic, normocephalic Eye exam: PRESENT: conjunctiva pink, EOMI, PERRLA. ABSENT: scleral icterus Ear exam: PRESENT: normal external ear exam Mouth exam: PRESENT: moist, tongue midline Neck exam: ABSENT: carotid bruit, JVD, lymphadenopathy, thyromegaly Respiratory exam: PRESENT: clear to auscultation tova. ABSENT: rales, rhonchi, wheezes Cardiovascular exam: PRESENT: RRR. ABSENT: diastolic murmur, rubs, systolic murmur Pulses: PRESENT: normal dorsalis pedis pul Vascular exam: PRESENT: normal capillary refill GI/Abdominal exam: PRESENT: normal bowel sounds, soft. ABSENT: distended, guarding, mass, organolmegaly, rebound, tenderness Rectal exam: PRESENT: deferred Extremities exam: PRESENT: full ROM. ABSENT: calf tenderness, clubbing, pedal edema Neurological exam: PRESENT: alert, awake, oriented to person, oriented to place , oriented to time, oriented to situation, CN II-XII grossly intact. ABSENT: motor sensory deficit Psychiatric exam: PRESENT: appropriate affect, normal mood. ABSENT: homicidal ideation, suicidal ideation Skin exam: PRESENT: dry, intact, warm. ABSENT: cyanosis, rash Results Laboratory Results: 11/25/17 05:28 11/25/17 05:28 11/24/17 11/24/17 11/24/17 09:50 09:50 09:50 WBC 18.3 H RBC 3.76 L Hgb 10.3 L Hct 32.0 L MCV 85 MCH 27.3 MCHC 32.1 RDW 14.6 H Plt Count 452 H Seg Neutrophils % Not Reportable Lymphocytes % Not Reportable Monocytes % Not Reportable Eosinophils % Not Reportable Basophils % Not Reportable Absolute Neutrophils Not Reportable Absolute Lymphocytes Not Reportable Absolute Monocytes Not Reportable Absolute Eosinophils Not Reportable Absolute Basophils Not Reportable Sodium 138.9 Potassium 4.3 Chloride 101 Carbon Dioxide 26 Anion Gap 12 BUN 21 H Creatinine 1.01 Est GFR ( Amer) > 60 Est GFR (Non-Af Amer) > 60 Glucose 105 Lactic Acid 0.8 Calcium 10.3 H 11/25/17 11/25/17 05:28 05:28 WBC 13.1 H RBC 3.49 L Hgb 9.6 L Hct 29.4 L MCV 84 MCH 27.5 MCHC 32.6 RDW 14.4 H Plt Count 409 Seg Neutrophils % 80.0 H Lymphocytes % 8.5 L Monocytes % 10.1 Eosinophils % 0.7 Basophils % 0.7 Absolute Neutrophils 10.5 H Absolute Lymphocytes 1.1 Absolute Monocytes 1.3 Absolute Eosinophils 0.1 Absolute Basophils 0.1 Sodium 139.8 Potassium 4.6 Chloride 103 Carbon Dioxide 25 Anion Gap 12 BUN 21 H Creatinine 0.88 Est GFR ( Amer) > 60 Est GFR (Non-Af Amer) > 60 Glucose 116 H Lactic Acid Calcium 9.9 Impressions: Chest X-Ray 11/23/17 16:24 IMPRESSION: NO SIGNIFICANT RADIOGRAPHIC FINDING IN THE CHEST. Abdomen/Pelvis CT 11/24/17 00:00 IMPRESSION: New 14 cm mass centered in the right pelvis with bony erosions in the anterior cortex of the right iliac bone. There is a 2nd new 8 cm mass in the presacral location with lytic changes in the anterior cortex at the S1 and S2 levels. Moderate adjacent inflammation is present in the right retroperitoneal- pararenal -duodenal fat. Bilateral hydronephrosis and proximal stents. Tube Placement 11/24/17 11:28 IMPRESSION: Bilateral patent nephrostomies. Assessment & Plan - Diagnosis (1) Deep venous thrombosis of right femoral vein Qualifiers: Chronicity: acute Qualified Code(s): I82.411 - Acute embolism and thrombosis of right femoral vein Is this a current diagnosis for this admission?: Yes Plan: Right lower extremity DVT, at this point agree with lower dose Lovenox, he will need to continue that for 1 week to ensure there is no further bleeding and then I would increase that back up to 80 mg twice daily. Would watch inpatient for another 24-48 hours to ensure there is no bleeding even with the lower dose. Per patient the right lower extremity pain and swelling has improved after being on Lovenox, and the hematuria is now clearing up over the last 24 hours. (2) Stage IV carcinoma of colon Is this a current diagnosis for this admission?: Yes Plan: This is the overall cause of the current presentation, he will continue see Dr. Brandan Rojas of [facility], his has been updating them of his progress here. - Time Time Spent: Greater than 70 Minutes - Inpatient Certification Based on my medical assessment, after consideration of the patient's comorbidities, presenting symptoms, or acuity I expect that the services needed warrant INPATIENT care.: Yes I certify that my determination is in accordance with my understanding of Medicare's requirements for reasonable and necessary INPATIENT services [42 CFR 412.3e].: Yes Medical Necessity: Need For Continuous Telemetry Monitoring, Risk of Complication if Not Cared For in Hospital
[2017-11-25] MEDS: ENOXAPARIN SODIUM INJ 60 MG/0.6 ML DISP.SYRIN SUBCUT SCH ×2 (09:59→20:58)
[2017-11-25] MEDS: BUPROPION HCL 75 MG TABLET PO SCH ×2 (10:00→17:16)
[2017-11-25] MEDS: CEFEPIME 1 GM/D5W RTU 1 GM/50 ML RTUPB IV SCH ×2 (10:00→20:57)
--- NOTE | 2017-11-25 12:34 | PDOC PROGRESS REPORT ---
Subjective Progress Note for:: 11/25/17 Subjective:: Patient is currently doing fair Patient's nephrostomies tube is all intact and today's I do not see any blood anymore and draining well Patient CT abdomen pelvis currently review and pretty much I think same as patient have done in the [place] Patient still have a some right lower extremity pain but the patient have a DVT in the mass Patient seen by the urology and suggest the lower dose of the Lovenox until the clear the hematuria Patient was seen by the launderette attendant oncologist and suggested continues to 60 mg twice daily and if the patient have a normal blood increase the full dose and follow with the [place] Patient's currently denied any chest pain denied any shortness of the breath Reason For Visit: OBSTRUCTION OF NEPHROSTOMY TUBE PYELONE Physical Exam Vital Signs: Temp Pulse Resp BP Pulse Ox 98.8 F 117 H 18 116/68 99 11/25/17 07:36 11/25/17 07:36 11/25/17 07:36 11/25/17 07:36 11/25/17 07:36 Intake & Output 11/24/17 11/25/17 11/26/17 06:59 06:59 06:59 Intake Total 470 1700 Balance 470 1700 Weight 90.8 kg 93.8 kg General appearance: PRESENT: no acute distress, well-developed, well-nourished Head exam: PRESENT: atraumatic, normocephalic Eye exam: PRESENT: conjunctiva pink, EOMI, PERRLA. ABSENT: scleral icterus Ear exam: PRESENT: normal external ear exam Mouth exam: PRESENT: moist, tongue midline Neck exam: PRESENT: full ROM. ABSENT: carotid bruit, JVD, lymphadenopathy, thyromegaly Respiratory exam: PRESENT: clear to auscultation tova Cardiovascular exam: PRESENT: RRR. ABSENT: diastolic murmur, rubs, systolic murmur Pulses: PRESENT: normal dorsalis pedis pul, +2 pedal pulses bilateral Vascular exam: PRESENT: normal capillary refill GI/Abdominal exam: PRESENT: normal bowel sounds, soft. ABSENT: distended, guarding, mass, organolmegaly, rebound, tenderness Rectal exam: PRESENT: deferred Extremities exam: ABSENT: pedal edema Neurological exam: PRESENT: alert, awake, oriented to person, oriented to place , oriented to time, oriented to situation, CN II-XII grossly intact. ABSENT: motor sensory deficit Psychiatric exam: PRESENT: appropriate affect, normal mood. ABSENT: homicidal ideation, suicidal ideation Skin exam: PRESENT: dry, intact, warm. ABSENT: cyanosis, rash Results Laboratory Results: 11/25/17 05:28 18 05:28 18 11/25/17 05:28 05:28 WBC 13.1 H RBC 3.49 L Hgb 9.6 L Hct 29.4 L MCV 84 MCH 27.5 MCHC 32.6 RDW 14.4 H Plt Count 409 Seg Neutrophils % 80.0 H Lymphocytes % 8.5 L Monocytes % 10.1 Eosinophils % 0.7 Basophils % 0.7 Absolute Neutrophils 10.5 H Absolute Lymphocytes 1.1 Absolute Monocytes 1.3 Absolute Eosinophils 0.1 Absolute Basophils 0.1 Sodium 139.8 Potassium 4.6 Chloride 103 Carbon Dioxide 25 Anion Gap 12 BUN 21 H Creatinine 0.88 Est GFR ( Amer) > 60 Est GFR (Non-Af Amer) > 60 Glucose 116 H Calcium 9.9 Impressions: Chest X-Ray 11/23/17 16:24 IMPRESSION: NO SIGNIFICANT RADIOGRAPHIC FINDING IN THE CHEST. Abdomen/Pelvis CT 11/24/17 00:00 IMPRESSION: New 14 cm mass centered in the right pelvis with bony erosions in the anterior cortex of the right iliac bone. There is a 2nd new 8 cm mass in the presacral location with lytic changes in the anterior cortex at the S1 and S2 levels. Moderate adjacent inflammation is present in the right retroperitoneal- pararenal -duodenal fat. Bilateral hydronephrosis and proximal stents. Tube Placement 11/24/17 11:28 IMPRESSION: Bilateral patent nephrostomies. Assessment & Plan - Diagnosis (1) Deep venous thrombosis of right femoral vein Qualifiers: Chronicity: acute Qualified Code(s): I82.411 - Acute embolism and thrombosis of right femoral vein Is this a current diagnosis for this admission?: Yes Plan: Continues to Lovenox 60 mg twice a day And patient hematuria is getting better if the patient's completely clear will get the full dose 80 mg twice a day as per discussed with the hematology (2) Obstructed nephrostomy tube Is this a current diagnosis for this admission?: Yes Plan: Currently all stable (3) Pyelonephritis Is this a current diagnosis for this admission?: Yes Plan: Continues to IV antibiotic (4) Stage IV carcinoma of colon Is this a current diagnosis for this admission?: Yes Plan: Is currently follow with the [facility] - Time Time Spent with patient: 15-24 minutes Medications reviewed and adjusted accordingly: Yes Anticipated discharge: Home Within: Other - Inpatient Certification Medical Necessity: Need Close Monitoring Due to Risk of Patient Decompensation, Need For IV Fluids, Need for IV Antibiotics Post Hospital 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
[2017-11-25] MEDS: DOXAZOSIN MESYLATE 4 MG TABLET PO SCH (20:57)
[2017-11-25] MEDS: GABAPENTIN 400 MG CAPSULE PO SCH (22:05)
[2017-11-26] MEDS: TRAZODONE HCL 50 MG TABLET PO PRN (00:22)
[2017-11-26] MEDS: MORPHINE SULFATE 10 MG/ML INJ IV PRN ×3 (04:20→20:01)
[2017-11-26] MEDS: NORMAL SALINE 1000 ML 1,000 ML IV PRN (04:28)
[2017-11-26] MEDS: GABAPENTIN 400 MG CAPSULE PO SCH ×2 (05:51→13:14)
[2017-11-26 06:07] LABS: ABSOLUTE BASOPHILS # (AUTO) 0.1 10^3/uL (0.0-0.2); ABSOLUTE EOSINOPHILS # (AUTO) 0.1 10^3/uL (0.0-0.6); ABSOLUTE LYMPHOCYTES (AUTO) 0.9 10^3/uL (0.5-4.7); ABSOLUTE MONOCYTES (AUTO) 1.3 10^3/uL (0.1-1.4); ABSOLUTE NEUT (AUTO) 8.5 10^3/uL (1.7-8.2); BASOPHILS % (AUTO) 0.7 % (0-2); EOSINOPHILS % (AUTO) 0.9 % (0-6); HEMATOCRIT 26.8 % (37.9-51.0); HEMOGLOBIN 8.8 g/dL (13.5-17.0); LYMPHOCYTES % (AUTO) 8.1 % (13-45); MEAN CORPUSCULAR HEMOGLOBIN 27.7 pg (27.0-33.4); MEAN CORPUSCULAR HGB CONC 32.8 g/dL (32.0-36.0); MEAN CORPUSCULAR VOLUME 84 fl (80-97); MONOCYTES % (AUTO) 11.7 % (3-13); PLATELET COUNT 381 10^3/uL (150-450); RED BLOOD COUNT 3.17 10^6/uL (4.35-5.55); RED CELL DISTRIBUTION WIDTH 14.6 % (11.5-14.0); SEGMENTED NEUTROPHILS % (AUTO) 78.6 % (42-78); TOTAL CELLS COUNTED % (AUTO) 100 %; WHITE BLOOD COUNT 10.8 10^3/uL (4.0-10.5)
[2017-11-26 06:26] LABS: ANION GAP 12 (5-19); BLOOD UREA NITROGEN 17 mg/dL (7-20); CALCIUM 9.6 mg/dL (8.4-10.2); CARBON DIOXIDE 25 mmol/L (22-30); CHLORIDE 105 mmol/L (98-107); GLUCOSE 102 mg/dL (75-110); POTASSIUM 4.5 mmol/L (3.6-5.0); SODIUM 141.8 mmol/L (137-145)
--- NOTE | 2017-11-26 08:33 | PDOC TRANSFER SUMMARY ---
General Admission Date/PCP: 11/23/17 18:01 Transfer Date: 11/26/17 Accepting Facility: [facility] Resuscitation Status: Full Code - Transfer Diagnosis (1) Deep venous thrombosis of right femoral vein Is this a current diagnosis for this admission?: Yes (2) Obstructed nephrostomy tube Is this a current diagnosis for this admission?: Yes (3) Pyelonephritis Is this a current diagnosis for this admission?: Yes (4) Stage IV carcinoma of colon Is this a current diagnosis for this admission?: Yes - Transfer Medications Home Medications: Cyclobenzaprine HCl [Flexeril 10 mg Tablet] 10 mg PO Q8HP PRN 11/24/17 Enoxaparin Sodium [Lovenox Inj 100 mg/1 ml Disp.syrin] 100 mg SQ BID 11/24/17 Gabapentin [Neurontin] 800 mg PO Q8 11/24/17 Hydrocodone/Acetaminophen [Hydrocodone-Acetamin 10-325 mg] 1 tab PO Q8HP PRN 02/04 Naproxen [Naprosyn] 500 mg PO Q12HP PRN 11/24/17 Transfer Medications: Current Medications Acetaminophen (Tylenol 325 Mg Tablet) 487.5 mg PO TIDP PRN PRN Reason: FOR PAIN Stop: 12/24/17 00:29 Last Admin: 11/24/17 08:58 Dose: 487.5 mg Hydrocodone Bitart/Acetaminophen (Stout 5-325 Mg Tablet) 1 tab PO Q4HP PRN PRN Reason: FOR PAIN Stop: 12/01/17 13:13 Bupropion HCl (Wellbutrin 75 Mg Tablet) 75 mg PO BID ALINA Stop: 12/24/17 09:59 Last Admin: 11/25/17 17:16 Dose: 75 mg Doxazosin Mesylate (Cardura 4 Mg Tablet) 4 mg PO QHS ALINA Stop: 12/23/17 21:59 Last Admin: 11/25/17 20:57 Dose: 4 mg Enoxaparin Sodium (Lovenox Inj 60 Mg/0.6 Ml Disp.Syrin) 60 mg SUBCUT Q12 ALINA Stop: 12/24/17 21:59 Last Admin: 11/25/17 20:58 Dose: 60 mg Gabapentin (Neurontin 400 Mg Capsule) 800 mg PO Q8 ALINA Stop: 12/25/17 21:59 Last Admin: 11/26/17 05:51 Dose: 800 mg Sodium Chloride (Nacl 0.9% 1000 Ml Iv Soln) 1,000 mls @ 60 mls/hr IV CONTINUOUS PRN PRN Reason: THIS MED IS NOT "PRN" Stop: 12/24/17 10:08 Last Admin: 11/26/17 04:28 Dose: 1,000 ml Cefepime HCl (Maxipime Rtu 1 Gm/D5w 50 Ml Premix Bag) 1 gm in 50 mls @ 100 mls/ hr IV Q12 ALINA Stop: 12/01/17 21:59 Last Admin: 11/25/17 20:57 Dose: 50 ml Morphine Sulfate (Morphine 10 Mg/Ml Inj) 1 mg IV Q8HP PRN PRN Reason: FOR SEVERE PAIN Stop: 12/01/17 13:13 Trazodone HCl (Desyrel 50 Mg Tablet) 100 mg PO HSP PRN PRN Reason: SLEEP OR INSOMNIA Stop: 12/23/17 22:14 Last Admin: 11/26/17 00:22 Dose: 100 mg - Allergies Allergies/Adverse Reactions: No Known Allergies Allergy (Verified 11/23/17 14:33) Hospital Course Hospital Course: This is a 51-year-old male with a history of the stage IV colon cancer currently have a nephrostomy tube was placed in the [facility] in patients came In the ER because nephrostomy tube was not working and some blood in the nephrostomy tube site in patients decided to admit in local urology on-call on that day was consulted in patients underwent for the interventional radiology to check the nephrostomy tube and was all intact Patient was recently diagnosis with a deep venous thrombosis in the right lower extremity and put on the Lovenox 100 mg and per urologist suggestions and reduce to 60 mg twice a day Patient still have on the left nephrostomy tube is blood And is still hemoglobin dropping and the local oncologist was consulted and not sure what is coming from the nephrostomy tube site of may be mass bleeding due to the Lovenox At this point patient's discussed oncology at [facility] because patients we do not have a new urologist continues to cover and patients currently follow all treatment to the [facility] to transfer to the [facility] for further evaluations with this ongoing bleeding issues Discussed with the patient and the and all agree and patient was transferred back to the [facility] Will send the CT scan report and all blood work ordered Patients initially diagnosed with a pyelonephritis with a white count was 26, 000 and currently is at 10,000 and currently on IV antibiotic and remain afebrile Physical Exam Vital Signs: Temp Pulse Resp BP Pulse Ox 99.1 F 117 H 20 116/76 100 11/26/17 03:55 11/26/17 03:55 11/26/17 03:55 11/26/17 03:55 11/26/17 03:55 Intake & Output 11/25/17 11/26/17 11/27/17 06:59 06:59 06:59 Intake Total 1700 2460 Output Total 56 Balance 1700 2404 Weight 93.8 kg 92.5 kg General appearance: PRESENT: no acute distress, well-developed, well-nourished Head exam: PRESENT: atraumatic, normocephalic Eye exam: PRESENT: conjunctiva pink, EOMI, PERRLA. ABSENT: scleral icterus Ear exam: PRESENT: normal external ear exam Mouth exam: PRESENT: moist, tongue midline Neck exam: ABSENT: carotid bruit, JVD, lymphadenopathy, thyromegaly Respiratory exam: PRESENT: clear to auscultation tova. ABSENT: rales, rhonchi, wheezes Cardiovascular exam: PRESENT: RRR. ABSENT: diastolic murmur, rubs, systolic murmur Pulses: PRESENT: normal dorsalis pedis pul Vascular exam: PRESENT: normal capillary refill GI/Abdominal exam: PRESENT: normal bowel sounds, soft. ABSENT: distended, guarding, mass, organolmegaly, rebound, tenderness Rectal exam: PRESENT: deferred Extremities exam: PRESENT: full ROM. ABSENT: calf tenderness, clubbing, pedal edema Neurological exam: PRESENT: alert, awake, oriented to person, oriented to place , oriented to time, oriented to situation, CN II-XII grossly intact. ABSENT: motor sensory deficit Psychiatric exam: PRESENT: appropriate affect, normal mood. ABSENT: homicidal ideation, suicidal ideation Skin exam: PRESENT: dry, intact, warm. ABSENT: cyanosis, rash Results Laboratory Results: 11/26/17 05:35 11/26/17 05:35 11/26/17 11/26/17 05:35 05:35 WBC 10.8 H RBC 3.17 L Hgb 8.8 L Hct 26.8 L MCV 84 MCH 27.7 MCHC 32.8 RDW 14.6 H Plt Count 381 Seg Neutrophils % 78.6 H Lymphocytes % 8.1 L Monocytes % 11.7 Eosinophils % 0.9 Basophils % 0.7 Absolute Neutrophils 8.5 H Absolute Lymphocytes 0.9 Absolute Monocytes 1.3 Absolute Eosinophils 0.1 Absolute Basophils 0.1 Sodium 141.8 Potassium 4.5 Chloride 105 Carbon Dioxide 25 Anion Gap 12 BUN 17 Creatinine 0.85 Est GFR ( Amer) > 60 Est GFR (Non-Af Amer) > 60 Glucose 102 Calcium 9.6 Impressions: Chest X-Ray 11/23/17 16:24 IMPRESSION: NO SIGNIFICANT RADIOGRAPHIC FINDING IN THE CHEST. Abdomen/Pelvis CT 11/24/17 00:00 IMPRESSION: New 14 cm mass centered in the right pelvis with bony erosions in the anterior cortex of the right iliac bone. There is a 2nd new 8 cm mass in the presacral location with lytic changes in the anterior cortex at the S1 and S2 levels. Moderate adjacent inflammation is present in the right retroperitoneal- pararenal -duodenal fat. Bilateral hydronephrosis and proximal stents. Tube Placement 11/24/17 11:28 IMPRESSION: Bilateral patent nephrostomies. Plan Time Spent: Greater than 30 Minutes - Plan is to transfer the when bed is available
--- NOTE | 2017-11-26 08:45 | PDOC PROGRESS REPORT ---
Subjective Progress Note for:: 11/26/17 Subjective:: Pt having more blood output from L nephrostomy tube, more than yesterday, there was about 1 point drop in hb over last 24 hours Reason For Visit: OBSTRUCTION OF NEPHROSTOMY TUBE PYELONE Physical Exam Vital Signs: Temp Pulse Resp BP Pulse Ox 99.1 F 117 H 20 116/76 100 11/26/17 03:55 11/26/17 03:55 11/26/17 03:55 11/26/17 03:55 11/26/17 03:55 Intake & Output 11/25/17 11/26/17 11/27/17 06:59 06:59 06:59 Intake Total 1700 2460 Output Total 56 Balance 1700 2404 Weight 93.8 kg 92.5 kg General appearance: PRESENT: no acute distress, well-developed, well-nourished Head exam: PRESENT: atraumatic, normocephalic Eye exam: PRESENT: conjunctiva pink, EOMI, PERRLA. ABSENT: scleral icterus Ear exam: PRESENT: normal external ear exam Mouth exam: PRESENT: moist, tongue midline Neck exam: ABSENT: carotid bruit, JVD, lymphadenopathy, thyromegaly Respiratory exam: PRESENT: clear to auscultation tova. ABSENT: rales, rhonchi, wheezes Cardiovascular exam: PRESENT: RRR. ABSENT: diastolic murmur, rubs, systolic murmur Pulses: PRESENT: normal dorsalis pedis pul Vascular exam: PRESENT: normal capillary refill GI/Abdominal exam: PRESENT: normal bowel sounds, soft. ABSENT: distended, guarding, mass, organolmegaly, rebound, tenderness Rectal exam: PRESENT: deferred Extremities exam: PRESENT: full ROM. ABSENT: calf tenderness, clubbing, pedal edema Neurological exam: PRESENT: alert, awake, oriented to person, oriented to place , oriented to time, oriented to situation, CN II-XII grossly intact. ABSENT: motor sensory deficit Psychiatric exam: PRESENT: appropriate affect, normal mood. ABSENT: homicidal ideation, suicidal ideation Skin exam: PRESENT: dry, intact, warm. ABSENT: cyanosis, rash Results Laboratory Results: 11/26/17 05:35 11/26/17 05:35 11/26/17 11/26/17 05:35 05:35 WBC 10.8 H RBC 3.17 L Hgb 8.8 L Hct 26.8 L MCV 84 MCH 27.7 MCHC 32.8 RDW 14.6 H Plt Count 381 Seg Neutrophils % 78.6 H Lymphocytes % 8.1 L Monocytes % 11.7 Eosinophils % 0.9 Basophils % 0.7 Absolute Neutrophils 8.5 H Absolute Lymphocytes 0.9 Absolute Monocytes 1.3 Absolute Eosinophils 0.1 Absolute Basophils 0.1 Sodium 141.8 Potassium 4.5 Chloride 105 Carbon Dioxide 25 Anion Gap 12 BUN 17 Creatinine 0.85 Est GFR ( Amer) > 60 Est GFR (Non-Af Amer) > 60 Glucose 102 Calcium 9.6 Impressions: Chest X-Ray 11/23/17 16:24 IMPRESSION: NO SIGNIFICANT RADIOGRAPHIC FINDING IN THE CHEST. Abdomen/Pelvis CT 11/24/17 00:00 IMPRESSION: New 14 cm mass centered in the right pelvis with bony erosions in the anterior cortex of the right iliac bone. There is a 2nd new 8 cm mass in the presacral location with lytic changes in the anterior cortex at the S1 and S2 levels. Moderate adjacent inflammation is present in the right retroperitoneal- pararenal -duodenal fat. Bilateral hydronephrosis and proximal stents. Tube Placement 11/24/17 11:28 IMPRESSION: Bilateral patent nephrostomies. Assessment & Plan - Diagnosis (1) Deep venous thrombosis of right femoral vein Qualifiers: Chronicity: acute Qualified Code(s): I82.411 - Acute embolism and thrombosis of right femoral vein Is this a current diagnosis for this admission?: Yes Plan: Lovenox lowered but now pt having inc blood outpt from nephrostomy tube, suggest transfer to [facility], b/c they will need to decide if hematuria continues do we d/c the lovenox and place IVC filter? That decision needs to be made by [facility] since they were treating this up to this point. (2) Stage IV carcinoma of colon Is this a current diagnosis for this admission?: Yes Plan: Further eval by sanabria - Time Time Spent with patient: 35 or more minutes Disposition: spent >35 min in discussion w/ pt about transfer, talking to nursing, coordination of care
[2017-11-26] MEDS: HYDROCODONE/ACETAMINOPHEN 5-325 MG TABLET PO PRN ×3 (08:46→18:49)
[2017-11-26] MEDS: BUPROPION HCL 75 MG TABLET PO SCH ×2 (09:38→18:49)
[2017-11-26] MEDS: CEFEPIME 1 GM/D5W RTU 1 GM/50 ML RTUPB IV SCH (09:39)
[2017-11-26] MEDS: ENOXAPARIN SODIUM INJ 60 MG/0.6 ML DISP.SYRIN SUBCUT SCH (09:39)
[2017-11-26 16:26] VITALS: BP 112/63
== END 2017-11-26 20:15 | DRG 690 ==
LOC: ER 14:29 → EH 18:01 → 3S 19:58
PROVIDERS: ADMIT Family Medicine; ATTEND Family Medicine
DX: N12 Tubulo-interstitial nephritis, not specified as acute or chronic (principal); I82.411 Acute embolism and thrombosis of right femoral vein; C18.9 Malignant neoplasm of colon, unspecified; N99.522 Malfunction of incontinent external stoma of urinary tract; G47.30 Sleep apnea, unspecified; F32.9 Major depressive disorder, single episode, unspecified; F43.10 Post-traumatic stress disorder, unspecified; G47.33 Obstructive sleep apnea (adult) (pediatric); Z92.3 Personal history of irradiation; Z87.891 Personal history of nicotine dependence; Z79.899 Other long term (current) drug therapy; Z90.49 Acquired absence of other specified parts of digestive tract
CPT/HCPCS: 36415; 49465; 71045; 74176; 80048; 80053; 81001; 82272; 83605; 85025; 85610; 85730; 87040; 87077; 87086; 99285; J0692; J0696; J1650; J2270; J7030

== ENCOUNTER 2018-05-14 11:12 | Emergency (ER) | payer MEDICARE, OTHER ==
--- NOTE | 2018-05-14 11:34 | ER Document Report ---
ED General <MIRTA PONCE - Last Filed: 05/14/18 14:44> - General Mode of Arrival: Medic Information source: Patient TRAVEL OUTSIDE OF THE [place] IN LAST 30 DAYS: No <ARMANDO ESPINAL - Last Filed: 05/15/18 06:10> - General Chief Complaint: Other Stated Complaint: URINARY ISSUES Time Seen by Provider: 05/14/18 11:24 Notes: 52-year-old male with colorectal cancer that presents to the emergency department today with complaints of cloudy urine in his nephrostomy bags along with possible leakage out of the left nephrostomy tube. Patient states he has no symptoms and if it was not for his noticing the cloudy urine he would not have come in as he felt like normal. Patient states that his noticed a small area around the left kidney that she thinks might be leaking because the external bandaging was somewhat moist. (ARMANDO ESPINAL) - Related Data Allergies/Adverse Reactions: No Known Allergies Allergy (Verified 05/14/18 12:25) Past Medical History - General Information source: Patient, [facility] Records - Social History Smoking Status: Unknown if Ever Smoked Cigarette use (# per day): No Frequency of alcohol use: None Drug Abuse: None Lives with: Family Family History: Reviewed & Not Pertinent - Past Medical History Cardiac Medical History: Pulmonary Medical History: Reports: Hx Sleep Apnea - Patient has CPAP but doesnt use it Malignancy Medical History: Reports Hx Colorectal Cancer Musculoskeletal Medical History: Psychiatric Medical History: Reports: Hx Depression, Hx Post Traumatic Stress Disorder Past Surgical History: Reports: Hx Kidney (Renal Surgery) - bilat stents q 6months, Hx Rectal Surgery - colorectal resection; colostomy - Immunizations Hx Diphtheria, Pertussis, Tetanus Vaccination: Yes <ARMANDO ESPINAL - Last Filed: 05/15/18 06:10> Review of Systems - Review of Systems Constitutional: denies: Fever EENT: No symptoms reported Cardiovascular: No symptoms reported Respiratory: No symptoms reported Gastrointestinal: No symptoms reported Genitourinary: Other - Cloudy urine in nephrostomy bad, possible leakage from left side Male Genitourinary: No symptoms reported Musculoskeletal: No symptoms reported Skin: No symptoms reported Hematologic/Lymphatic: No symptoms reported Neurological/Psychological: No symptoms reported -: Yes All other systems reviewed and negative <ARMANDO ESPINAL - Last Filed: 05/15/18 06:10> Physical Exam <MIRTA PONCE - Last Filed: 05/14/18 14:44> <ARMANDO ESPINAL - Last Filed: 05/15/18 06:10> - Vital signs Vitals: Temp Pulse Resp BP Pulse Ox 98.1 F 116 H 19 109/81 100 05/14/18 11:26 05/14/18 11:26 05/14/18 11:26 05/14/18 11:26 05/14/18 11:26 - Notes Notes: Physical Exam: General: Alert, chronically ill-appearing, cachectic. HEENT: Normocephalic. Atraumatic. PERRL. Extraocular movements intact. Oropharynx clear. Neck: Supple. Non-tender. Respiratory: No respiratory distress. Clear and equal breath sounds bilaterally. Cardiovascular: Regular rate and rhythm. Abdominal: Abdominal distension, abdomen is very firm and hard with palpation. Colostomy bag in place. Back: Non-tender. No deformity or step off. Nephrostomy tubes coming out of bilateral kidneys. Bandage over the left nephrostomy tube has very small area of a williamson/yellow color in the very center of the bandage where the tube touches the Band-Aid. Extremities: Moves all four extremities. Upper extremities: Normal inspection. Normal ROM. Lower extremities: Normal inspection. No edema. Normal ROM. Neurological: Normal cognition. AAOx4. Normal speech. Psychological: Normal affect. Normal Mood. Skin: Normal color. Warm. Dry. (ARMANDO ESPINAL) Course - Laboratory Result Diagrams: 05/14/18 11:50 05/14/18 11:50 - Consults Dr. Nunes Consulted provider: follow-up in office - Requests the patient be placed on Cipro, and to follow-up in the office. <MIRTA PONCE - Last Filed: 05/14/18 14:44> - Laboratory Result Diagrams: 05/14/18 11:50 05/14/18 11:50 <ARMANDO ESPINAL - Last Filed: 05/15/18 06:10> - Re-evaluation Re-evalutation: 05/14/18 14:37 The bandages were removed from the nephrostomy sites. The one on the left had a little bit of tannish mucus that was cultured. There was no drainage of urine , or further drainage of mucus or exudate when the area around the nephrostomy tube was palpated. There is no erythema around the nephrostomy tube site. 05/14/18 14:42 Review of the patient's records shows that in November of this year he had a white blood cell count over 26,000 and the urinalyses did not show any bacteria on microscopic exam, and did not grow any bacteria on culture. The reports that in February of this year he was admitted to [facility] with sepsis from the urine that ultimately infected his port. Today the urine from each kidney had 3+ and 4+ bacteria along with too numerous to count WBCs. His total white blood cell count was 8600 and the patient looks sick, and states he does not feel sick. He will be put on Cipro for now, pending culture results. (MIRTA PONCE) - Vital Signs Vital signs: Temp Pulse Resp BP Pulse Ox 98.1 F 116 H 30 H 102/78 100 05/14/18 11:26 05/14/18 11:26 05/14/18 15:00 05/14/18 14:00 05/14/18 15:00 - Laboratory Laboratory results interpreted by me: 05/14/18 05/14/18 05/14/18 11:50 11:50 11:50 RBC 3.56 L Hgb 8.9 L Hct 28.2 L MCV 79 L MCH 24.9 L MCHC 31.4 L RDW 18.3 H Seg Neutrophils % 88.9 H Lymphocytes % 5.3 L Sodium 136.2 L Carbon Dioxide 19 L BUN 42 H Creatinine 1.81 H Est GFR ( Amer) 48 L Est GFR (Non-Af Amer) 40 L AST 11 L ALT 15 L Total Protein 6.1 L Albumin 2.6 L Urine Protein 100 H Urine Ketones Urine Blood LARGE H Urine Nitrite Ur Leukocyte Esterase LARGE H 05/14/18 12:05 RBC Hgb Hct MCV MCH MCHC RDW Seg Neutrophils % Lymphocytes % Sodium Carbon Dioxide BUN Creatinine Est GFR ( Amer) Est GFR (Non-Af Amer) AST ALT Total Protein Albumin Urine Protein 100 H Urine Ketones TRACE H Urine Blood MODERATE H Urine Nitrite POSITIVE H Ur Leukocyte Esterase LARGE H Discharge <MIRTA PONCE - Last Filed: 05/14/18 14:44> <ARMANDO ESPINAL - Last Filed: 05/15/18 06:10> - Discharge Clinical Impression: Drainage around the left nephrostomy site Urinary catheter infection Qualifiers: Encounter type: initial encounter Qualified Code(s): T83.518A - Infection and inflammatory reaction due to other urinary catheter, initial encounter Condition: Stable Disposition: HOME, SELF-CARE Additional Instructions: Both nephrostomy tubes were draining urine that seem to have bacterial infection. There was minimal purulent drainage around your left nephrostomy tube, there was no urine drainage seen. Take the antibiotics as prescribed. Drink plenty of fluids. Follow-up with Dr. Nunes in the next few days for recheck of your urine. Call your doctors at [facility] if the drainage around your nephrostomy tubes increases. RETURN TO THE EMERGENCY ROOM IF ANY NEW OR WORSENING SYMPTOMS. Prescriptions: Ciprofloxacin HCl [Cipro 500 mg Tablet] 500 mg PO BID #14 tablet Referrals: LOUISA NUNES MD [Primary Care Provider] - Follow up as needed Scribe Attestation: 05/14/18 11:52 I personally performed the services described in the documentation, reviewed and edited the documentation which was dictated to the scribe in my presence, and it accurately records my words and actions. (MIRTA PONCE) Scribe Documentation - Scribe Written by Alyssa:: Alyssa Gonzalez, 05/14/2018 1145 acting as scribe for :: Beatrice <ARMANDO ESPINAL - Last Filed: 05/15/18 06:10>
[2018-05-14 12:15] LABS: ABSOLUTE BASOPHILS # (AUTO) 0.1 10^3/uL (0.0-0.2); ABSOLUTE LYMPHOCYTES (AUTO) 0.5 10^3/uL (0.5-4.7); ABSOLUTE MONOCYTES (AUTO) 0.4 10^3/uL (0.1-1.4); ABSOLUTE NEUT (AUTO) 7.6 10^3/uL (1.7-8.2); BASOPHILS % (AUTO) 0.6 % (0-2); EOSINOPHILS % (AUTO) 0.1 % (0-6); HEMATOCRIT 28.2 % (37.9-51.0); HEMOGLOBIN 8.9 g/dL (13.5-17.0); LYMPHOCYTES % (AUTO) 5.3 % (13-45); MEAN CORPUSCULAR HEMOGLOBIN 24.9 pg (27.0-33.4); MEAN CORPUSCULAR HGB CONC 31.4 g/dL (32.0-36.0); MEAN CORPUSCULAR VOLUME 79 fl (80-97); MONOCYTES % (AUTO) 5.1 % (3-13); PLATELET COUNT 408 10^3/uL (150-450); RED BLOOD COUNT 3.56 10^6/uL (4.35-5.55); RED CELL DISTRIBUTION WIDTH 18.3 % (11.5-14.0); SEGMENTED NEUTROPHILS % (AUTO) 88.9 % (42-78); TOTAL CELLS COUNTED % (AUTO) 100 %; WHITE BLOOD COUNT 8.5 10^3/uL (4.0-10.5)
[2018-05-14 12:25] LABS: APPEARANCE,URINE TURBID; BILIRUBIN,URINE NEGATIVE (NEGATIVE); COLOR,URINE YELLOW; GLUCOSE, URINE NEGATIVE (NEGATIVE); KETONES,URINE TRACE mg/dL (NEGATIVE); LEUKOCYTE ESTERASE,URINE LARGE (NEGATIVE); NITRITE,URINE POSITIVE (NEGATIVE); PROTEIN,URINE 100 mg/dL (NEGATIVE); URINE SPECIFIC GRAVITY 1.011; UROBILINOGEN,URINE NEGATIVE mg/dL (<2.0)
[2018-05-14 12:38] LABS: APPEARANCE,URINE TURBID; BILIRUBIN,URINE NEGATIVE (NEGATIVE); GLUCOSE, URINE NEGATIVE (NEGATIVE); KETONES,URINE NEGATIVE (NEGATIVE); LEUKOCYTE ESTERASE,URINE LARGE (NEGATIVE); NITRITE,URINE NEGATIVE (NEGATIVE); PROTEIN,URINE 100 mg/dL (NEGATIVE); URINE SPECIFIC GRAVITY 1.012; UROBILINOGEN,URINE NEGATIVE mg/dL (<2.0)
[2018-05-14 12:40] LABS: COLOR,URINE BROWN
[2018-05-14 12:42] LABS: ALANINE AMINOTRANSFERASE 15 U/L (21-72); ALBUMIN 2.6 g/dL (3.5-5.0); ALKALINE PHOSPHATASE 93 U/L (38-126); ANION GAP 14 (5-19); ASPARTATE AMINO TRANSFERASE 11 U/L (17-59); BILIRUBIN,DIRECT 0.3 mg/dL (0.0-0.4); BILIRUBIN,TOTAL 0.4 mg/dL (0.2-1.3); BLOOD UREA NITROGEN 42 mg/dL (7-20); CARBON DIOXIDE 19 mmol/L (22-30); CHLORIDE 103 mmol/L (98-107); GLUCOSE 80 mg/dL (75-110); POTASSIUM 4.7 mmol/L (3.6-5.0); SODIUM 136.2 mmol/L (137-145); TOTAL PROTEIN 6.1 g/dL (6.3-8.2)
[2018-05-14] MEDS ORDERED: CIPROFLOXACIN HCL 500 MG TABLET PO ONE (14:41)
[2018-05-14 15:20] VITALS: BP 102/78
== END 2018-05-14 15:20 | disposition home or self-care (01) ==
LOC: ER 11:12
DX: T83.518A Infection and inflammatory reaction due to other urinary catheter, initial encounter (principal); G47.30 Sleep apnea, unspecified; F32.9 Major depressive disorder, single episode, unspecified; F43.10 Post-traumatic stress disorder, unspecified; Z93.3 Colostomy status; Z85.038 Personal history of other malignant neoplasm of large intestine
CPT/HCPCS: 99284; 36415; 87040; 87086; 87070; 87205; 85025; 87075; 87088; 80053; 81001; 87186; A9270

== ENCOUNTER 2018-05-20 23:37 | Emergency (ER) | payer MEDICARE, OTHER ==
--- NOTE | 2018-05-20 23:49 | ER Document Report ---
ED General - General Stated Complaint: BLOOD PRESSURE PROBLEM Time Seen by Provider: 05/20/18 23:45 Notes: Patient is a 52-year-old male with a history of bilateral nephrostomy tubes. He has a history of colon cancer. Because of the colon cancer he has nephrostomy tubes because the tumors were causing obstructions of his ureters. Patient is followed by both oncology and urology at [facility]. He was seen on the and diagnosed with a urinary tract infection and placed on Cipro. They have continue take the Cipro. I did review the cultures and cultures grew out Pseudomonas. Patient's start feel a bit worse today and had some episodes of hypotension at home. His family member therefore called Dr. Brandan Mc, patient's urologist, who told him to come to the ER for evaluation and then to likely be transferred to [facility] after ER evaluation. He has been having significant decrease in amount of urinary output of his left nephrostomy tube. No fevers. No vomiting. No increasing pain in his back. TRAVEL OUTSIDE OF THE [place] IN LAST 30 DAYS: No - Related Data Allergies/Adverse Reactions: No Known Allergies Allergy (Verified 05/14/18 12:25) Past Medical History - Social History Smoking Status: Unknown if Ever Smoked Frequency of alcohol use: None Drug Abuse: None Family History: Reviewed & Not Pertinent - Past Medical History Cardiac Medical History: Denies: Hx Heart Attack, Hx Hypertension Pulmonary Medical History: Reports: Hx Sleep Apnea - Patient has CPAP but doesnt use it Denies: Hx Asthma, Hx Bronchitis, Hx COPD, Hx Pneumonia, Hx Respiratory Failure, Hx Tuberculosis Neurological Medical History: Denies: Hx Seizures Renal/ Medical History: Denies: Hx Peritoneal Dialysis Malignancy Medical History: Reports Hx Colorectal Cancer GI Medical History: Denies: Hx Gastroesophageal Reflux Disease, Hx Hiatal Hernia , Hx Pancreatitis, Hx Ulcer Musculoskeletal Medical History: Denies Hx Arthritis Psychiatric Medical History: Reports: Hx Depression, Hx Post Traumatic Stress Disorder Denies: Hx Bipolar Disorder, Hx Schizophrenia Past Surgical History: Reports: Hx Abdominal Surgery, Hx Genitourinary Surgery, Hx Kidney (Renal Surgery) - bilat stents q 6months, Hx Rectal Surgery - colorectal resection; colostomy. Denies: Hx Appendectomy, Hx Bowel Surgery, Hx Cholecystectomy, Hx Open Heart Surgery, Hx Tonsillectomy - Immunizations Hx Diphtheria, Pertussis, Tetanus Vaccination: Yes Review of Systems - Review of Systems Notes: My Normal Review Basic REVIEW OF SYSTEMS: CONSTITUTIONAL : Denies fever, chills, or sweats. CARDIOVASCULAR: Denies chest pain. RESPIRATORY: Denies cough, cold, or chest congestion. Denies shortness of breath, difficulty breathing, or wheezing. GASTROINTESTINAL: Denies abdominal pain. Denies nausea, vomiting, or diarrhea. Denies constipation. Last BM: GENITOURINARY: Decreased urinary output and left nephrostomy bag. MUSCULOSKELETAL: Denies neck or back pain or joint pain or swelling. SKIN: Denies rash or skin lesions. NEUROLOGICAL: Denies altered mental status or loss of consciousness. ALL OTHER SYSTEMS REVIEWED AND NEGATIVE. Physical Exam - Vital signs Vitals: Resp 17 05/20/18 23:39 - Notes Notes: General Appearance: Well nourished, alert, cooperative, no acute distress, no obvious discomfort. Vitals: reviewed, See vital signs table. Head: no swelling or tenderness to the head Eyes: PERRL, EOMI, Conjuctiva clear Mouth: No decreasd moisture Lungs: No wheezing, No rales, No rhonci, No accessory muscle use, good air exchange bilaterally. Heart: tachyardiac rate, Regular rythm, No murmur, no rub back: Some yellowish drainage around the left nephrostomy tube site. Right nephrostomy tube site is normal-appearing. Very small amount of fluid in the last nephrostomy tube bag. Right nephrostomy tube bag has moderate amount of faint yellow urine. Abdomen: Normal BS, soft, No rigidity, patient has obvious underlying mass to palpation on the right side of his abdomen. This area is tender but patient says is chronic and unchanged. Large surgical scars on abdomen. Extremities: strength 5/5 in all extremities, good pulses in all extremities, no swelling or tenderness in the extremities, 3+ B/L LE edema. Skin: warm, dry, appropriate color, no rash Neuro: speech clear, oriented x 3, normal affect, responds appropriately to questions. Course - Re-evaluation Re-evalutation: 05/21/18 02:35 Patient has worsening renal function. He has significant amount of hydronephrosis of both kidneys. Suspect there is some obstruction of his nephrostomy tube especially in the left. I have given him Zosyn as his previous urine culture shows Pseudomonas. I feel the patient does require transfer to [facility]. I have called [facility] and am urology. Dictation of this chart was performed using voice recognition software; therefore, there may be some unintended grammatical errors. 05/21/18 02:[address] Guzman, oncologist at [facility], who agrees to accept the patient is an ER to ER transfer to [facility]. I have explained this to the patient and family agreeable plan. Patient clinically continues to be doing well. Heart rate remains around 120 which again the patient's daughter says is around his baseline. Blood pressure is currently 105/70. We will continue to monitor the patient until he is transferred. Dictation of this chart was performed using voice recognition software; therefore, there may be some unintended grammatical errors. - Vital Signs Vital signs: Temp Pulse Resp BP Pulse Ox 98.4 F 15 100/73 99 05/20/18 23:40 05/21/18 02:15 05/21/18 02:15 05/21/18 02:15 - Laboratory Result Diagrams: 05/20/18 23:48 05/20/18 23:48 Laboratory results interpreted by me: 05/20/18 05/20/18 05/21/18 23:48 23:48 00:14 RBC 3.10 L Hgb 7.9 L Hct 24.7 L MCH 25.4 L MCHC 31.9 L RDW 19.3 H Seg Neutrophils % 87.0 H Lymphocytes % 5.4 L Absolute Neutrophils 8.5 H Carbon Dioxide 19 L BUN 52 H Creatinine 2.72 H Est GFR ( Amer) 30 L Est GFR (Non-Af Amer) 25 L AST 11 L ALT 10 L Total Protein 6.0 L Albumin 2.6 L Urine Protein 100 H Urine Blood MODERATE H Ur Leukocyte Esterase LARGE H 05/21/18 00:14 RBC Hgb Hct MCH MCHC RDW Seg Neutrophils % Lymphocytes % Absolute Neutrophils Carbon Dioxide BUN Creatinine Est GFR ( Amer) Est GFR (Non-Af Amer) AST ALT Total Protein Albumin Urine Protein 100 H Urine Blood MODERATE H Ur Leukocyte Esterase LARGE H - EKG Interpretation by Me Additional EKG results interpreted by me: 05/20/18 23:48 EKG is reviewed and interpreted by me. EKG shows sinus tachycardia with a rate of [address] segment elevation or depression. No ischemic T wave inversions. CO interval, QRS duration, QTc intervals are within normal range. No old EKG available for comparison at this time. Discharge - Discharge Referrals: LOUISA BARRAGAN MD [Primary Care Provider] - Follow up as needed
[2018-05-20] MEDS ORDERED: PIPERACILLIN/TAZOBACTAM 3.375 GM VIAL IV ONE (23:57)
[2018-05-20] MEDS ORDERED: NORMAL SALINE 500 ML IV ONE (23:59)
[2018-05-21 00:11] LABS: ABSOLUTE BASOPHILS # (AUTO) 0.1 10^3/uL (0.0-0.2); ABSOLUTE LYMPHOCYTES (AUTO) 0.5 10^3/uL (0.5-4.7); ABSOLUTE MONOCYTES (AUTO) 0.7 10^3/uL (0.1-1.4); ABSOLUTE NEUT (AUTO) 8.5 10^3/uL (1.7-8.2); BASOPHILS % (AUTO) 0.5 % (0-2); EOSINOPHILS % (AUTO) 0.2 % (0-6); HEMATOCRIT 24.7 % (37.9-51.0); LYMPHOCYTES % (AUTO) 5.4 % (13-45); MEAN CORPUSCULAR HEMOGLOBIN 25.4 pg (27.0-33.4); MEAN CORPUSCULAR HGB CONC 31.9 g/dL (32.0-36.0); MEAN CORPUSCULAR VOLUME 80 fl (80-97); MONOCYTES % (AUTO) 6.9 % (3-13); PLATELET COUNT 389 10^3/uL (150-450); RED CELL DISTRIBUTION WIDTH 19.3 % (11.5-14.0); TOTAL CELLS COUNTED % (AUTO) 100 %; WHITE BLOOD COUNT 9.8 10^3/uL (4.0-10.5)
[2018-05-21 00:15] LABS: HEMOGLOBIN 7.9 g/dL (13.5-17.0)
[2018-05-21 00:26] LABS: ALANINE AMINOTRANSFERASE 10 U/L (21-72); ALBUMIN 2.6 g/dL (3.5-5.0); ALKALINE PHOSPHATASE 84 U/L (38-126); ANION GAP 14 (5-19); ASPARTATE AMINO TRANSFERASE 11 U/L (17-59); BILIRUBIN,DIRECT 0.2 mg/dL (0.0-0.4); BILIRUBIN,TOTAL 0.3 mg/dL (0.2-1.3); BLOOD UREA NITROGEN 52 mg/dL (7-20); CALCIUM 9.1 mg/dL (8.4-10.2); CARBON DIOXIDE 19 mmol/L (22-30); CHLORIDE 105 mmol/L (98-107); GLUCOSE 96 mg/dL (75-110); POTASSIUM 4.4 mmol/L (3.6-5.0); SODIUM 137.6 mmol/L (137-145)
[2018-05-21 00:47] LABS: APPEARANCE,URINE TURBID; BILIRUBIN,URINE NEGATIVE (NEGATIVE); COLOR,URINE YELLOW; GLUCOSE, URINE NEGATIVE (NEGATIVE); KETONES,URINE NEGATIVE (NEGATIVE); LEUKOCYTE ESTERASE,URINE LARGE (NEGATIVE); NITRITE,URINE NEGATIVE (NEGATIVE); PROTEIN,URINE 100 mg/dL (NEGATIVE); URINE SPECIFIC GRAVITY 1.011; UROBILINOGEN,URINE NEGATIVE mg/dL (<2.0)
--- NOTE | 2018-05-21 01:37 | RADIOLOGY REPORT (SQ) ---
EXAM DESCRIPTION: US RETROPERITONEUM COMPLETED DATE/TME: 05/21/2018 00:00 CLINICAL HISTORY: 52 years, Male, left nephrosotmy not draining COMPARISON: CT March 24, 2016 TECHNIQUE: Transverse longitudinal sonographic images of the kidneys and urinary bladder LIMITATIONS: None. FINDINGS: Right renal length is 13.82 cm, the left is 14.5 cm. Moderate right with moderate to severe left hydronephrosis. No perinephric fluid collection. Echogenic foci of each kidney suggesting bilateral renal calculi. Urinary bladder is not well seen likely due to nondistention. IMPRESSION: Moderate right and moderate to severe left hydronephrosis. 2010 [employer]- All Rights Reserved
[2018-05-21 02:26] LABS: APPEARANCE,URINE TURBID; BILIRUBIN,URINE NEGATIVE (NEGATIVE); GLUCOSE, URINE NEGATIVE (NEGATIVE); KETONES,URINE NEGATIVE (NEGATIVE); LEUKOCYTE ESTERASE,URINE LARGE (NEGATIVE); NITRITE,URINE NEGATIVE (NEGATIVE); PROTEIN,URINE 100 mg/dL (NEGATIVE); URINE SPECIFIC GRAVITY 1.012; UROBILINOGEN,URINE NEGATIVE mg/dL (<2.0)
[2018-05-21 02:27] LABS: COLOR,URINE YELLOW
--- NOTE | 2018-05-21 08:47 | ER Document Report ---
Doctor's Note Notes: 05/21/18 08:47 Reassessed this 52-year-old gentleman. He has normal blood pressures, he has had persistent low level tachycardia since my arrival. Do not believe that he requires repeat administration of fluids at this time, transport is currently here for this gentleman, will plan for proceeded transfer to [place] for definitive care of his obstructed nephrostomy tubes.
[2018-05-21 09:02] VITALS: BP 101/70
--- NOTE | 2018-05-22 12:39 | EKG REPORT ---
SEVERITY:- BORDERLINE ECG - SINUS TACHYCARDIA LOW VOLTAGE IN FRONTAL LEADS BORDERLINE T ABNORMALITIES, DIFFUSE LEADS : Confirmed by: Adri Shepherd MD 22-May-2018 12:38:18
== END 2018-05-21 08:45 | disposition short-term general hospital (02) ==
LOC: ER 23:37
DX: N99.528 Other complication of incontinent external stoma of urinary tract (principal); Y83.8 Other surgical procedures as the cause of abnormal reaction of the patient, or of later complication, without mention of misadventure at the time of the procedure; N39.0 Urinary tract infection, site not specified; C18.9 Malignant neoplasm of colon, unspecified; N13.30 Unspecified hydronephrosis; R00.0 Tachycardia, unspecified; D64.9 Anemia, unspecified
CPT/HCPCS: 93005; 99285; 96361; 96365; 96366; 36415; 87040; 87086; 82962; 85025; 80053; 81001; 83605; 76770; 93010; J7040; J2543

== ENCOUNTER → 2018-07-08 | Outpatient (CLI) | payer MEDICARE, OTHER ==
--- NOTE | 2018-07-08 13:31 | RADIOLOGY REPORT (SQ) ---
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 NUMBER OF VIEWS: Three views. TECHNIQUE: AP, lateral, and tilt views of the sacrum and coccyx. LIMITATIONS: None. FINDINGS: MINERALIZATION: Normal. BONES: Bone destruction is not evident on these images. SOFT TISSUES: No soft tissue swelling. No foreign body. OTHER: No other significant finding. IMPRESSION: No bone destruction is seen. TECHNICAL DOCUMENTATION: JOB ID: [id number] [employer]- All Rights Reserved Reading location - IP/workstation name: [email or web address]
== END ==
LOC: RAD 10:57
PROVIDERS: ATTEND Nurse Practitioner
DX: L89.153 Pressure ulcer of sacral region, stage 3 (principal)
CPT/HCPCS: 72220

== ENCOUNTER 2018-07-25 23:41 | Emergency (ER) | payer MEDICARE, OTHER ==
[2018-07-25] MEDS ORDERED: NORMAL SALINE 1000 ML 1,000 ML IV ONE (23:44)
[2018-07-26] MEDS ORDERED: PANTOPRAZOLE SODIUM 40 MG VIAL IV ONE
[2018-07-26] MEDS ORDERED: PIPERACILLIN/TAZOBACTAM 3.375 GM VIAL IV ONE (00:01)
[2018-07-26] MEDS ORDERED: FENTANYL CITRATE INJ/PF 100 MCG/2 ML AMPUL IV ONE (00:01)
[2018-07-26] MEDS ORDERED: VANCOMYCIN HCL INJ 1000 MG VIAL IV ONE (00:01)
--- NOTE | 2018-07-26 00:12 | ER Document Report ---
ED General - General Stated Complaint: VOMITING Time Seen by Provider: 07/25/18 23:44 TRAVEL OUTSIDE OF THE [place] IN LAST 30 DAYS: No - HPI Notes: Patient is a 52-year-old male that presents to the emergency department for chief complaint of coughing up mucus. Patient has colorectal cancer and is on chemotherapy. He lives at home with family. yesterday family noticed he was coughing up clear sputum. Today they state it turns dark. EMS said that it looked not quite like coffee grounds but was "dark and speckly". Patient is on Lovenox for a known right lower extremity DVT. He has colostomy and bilateral nephrostomy tubes. He is currently on Levaquin for possible infection however family is not sure where this infection is. Patient recently started seeing Dr. Min for oncology. Patient states he feels cold and denies fevers. He denies any shortness of breath or vomiting. He states he has pain in his right lower extremity which he takes oxycodone for at home. He has also taken his home gabapentin. Past Medical History: Colorectal cancer Past Surgical History: Colostomy, bilateral nephrostomy tubes Social History: Reviewed in chart Family History: Reviewed and noncontributory for presenting illness Allergies: Reviewed, see documented allergy list. REVIEW OF SYSTEMS: CONSTITUTIONAL : No fever chills No diaphoresis No recent illness EENT: No vision changes No congestion No sore throat CARDIOVASCULAR: No chest pain palpitations RESPIRATORY: No shortness of breath cough No difficulty breathing GASTROINTESTINAL: No abdominal pain No nausea No vomiting No diarrhea GENITOURINARY: No dysuria No hematuria No difficulty urinating MUSCULOSKELETAL: No back pain leg pain No arm pain SKIN: No rashes No lesions LYMPHATIC: No swollen, enlarged glands. NEUROLOGICAL: No lightheadedness No headache No weakness No paresthesias PSYCHIATRIC: No anxiety No depression PHYSICAL EXAMINATION: Vital signs reviewed, nursing noted reviewed. GENERAL: Toxic appearing, cachectic HEAD: Atraumatic, normocephalic. EYES: Eyes appear normal, extraocular movements intact, sclera anicteric, conjunctiva are normal. ENT: nares patent, oropharynx clear without exudates. Dry mucous membranes. NECK: Normal range of motion, supple without lymphadenopathy LUNGS: Tachypnea, diminished lung sounds bilaterally, no accessory muscle use. HEART: Tachycardic and regular rhythm without murmurs ABDOMEN: Distended, edematous, protuberant laterally on the right with possible underlying mass, caput medusa, nontender, soft, colostomy lateral left clean, dry, intact. EXTREMITIES: Diffuse right lower extremity tenderness. Bilateral lower extremity pitting edema NEUROLOGICAL: Normal upper extremity sensation and movement. Minimal movement of bilateral lower extremities. PSYCH: Normal mood, normal affect. SKIN: Warm, Dry, normal turgor, no rashes, large sacral ulcer - Related Data Allergies/Adverse Reactions: No Known Allergies Allergy (Verified 05/14/18 12:25) Past Medical History - Social History Smoking Status: Unknown if Ever Smoked Family History: Reviewed & Not Pertinent - Past Medical History Cardiac Medical History: Denies: Hx Heart Attack, Hx Hypertension Pulmonary Medical History: Reports: Hx Sleep Apnea - Patient has CPAP but doesnt use it Denies: Hx Asthma, Hx Bronchitis, Hx COPD, Hx Pneumonia, Hx Respiratory Failure, Hx Tuberculosis Neurological Medical History: Denies: Hx Seizures Renal/ Medical History: Denies: Hx Peritoneal Dialysis Malignancy Medical History: Reports Hx Colorectal Cancer GI Medical History: Denies: Hx Gastroesophageal Reflux Disease, Hx Hiatal Hernia, Hx Pancreatitis, Hx Ulcer Musculoskeletal Medical History: Denies Hx Arthritis Psychiatric Medical History: Reports: Hx Depression, Hx Post Traumatic Stress Disorder Denies: Hx Bipolar Disorder, Hx Schizophrenia Past Surgical History: Reports: Hx Abdominal Surgery, Hx Genitourinary Surgery, Hx Kidney (Renal Surgery) - bilat stents q 6months, Hx Rectal Surgery - colore ctal resection; colostomy. Denies: Hx Appendectomy, Hx Bowel Surgery, Hx Cholecystectomy, Hx Open Heart Surgery, Hx Tonsillectomy - Immunizations Hx Diphtheria, Pertussis, Tetanus Vaccination: Yes Physical Exam - Vital signs Vitals: Pulse BP Pulse Ox 135 H 111/80 100 07/25/18 23:52 07/25/18 23:52 07/25/18 23:52 Course - Re-evaluation Re-evalutation: 07/26/18 00:12 Vitals reviewed. Nursing notes reviewed. Patient is tachycardic and appears septic in appearance. He was started on IV hydration, vancomycin and Zosyn for likely sepsis. Patient also had complaint of possible coffee-ground emesis vers us dark sputum. Type and screen performed. Patient is Gastroccult and Hemoccult positive. 07/26/18 00:22 Patient received Protonix and was ordered packed red blood cells for his GI bleed. Currently I am awaiting a callback from [facility] for transfer which patient is requiring since we do not have GI at this facility. 07/26/18 00:[address] Brady at [facility] who accepts patient for transfer however there is no current MICU bed available, patient is now on a wait list. Transfer center is attempting to see if [facility] has endoscopy capabilities and could accept this patient. Currently patient's heart rate is improving with hydration 07/26/18 01:09 Patient's hemoglobin returned at 8.8, he was ordered 1 unit of uncrossed blood for immediate transfusion. He is continuing to improve with hydration. Case was discussed with Dr. Woo, computer forensics analyst at [facility] who has accepted patient for transfer. This facility I am told has GI and is capable of managing this patient's bleeding as well as sepsis. Patient's chest x-ray shows likely underlying pneumonia. He is still oxygenating at 100% on room air. He is in no respiratory distress and is protecting his airway. Patient's lactate also returned elevated at 2.3. 07/26/18 03:01 Patient evaluated just prior to transfer. His heart rate had improved to 99. Blood pressure had remained stable and was increasing. Patient is stable for transfer. Patient and family are still in agreement with this plan. Laboratory 07/26/18 07/26/18 07/26/18 00:10 00:10 00:10 WBC 16.2 H RBC 3.27 L Hgb 8.8 L Hct 27.2 L MCV 83 MCH 27.0 MCHC 32.4 RDW 16.4 H Plt Count 440 Total Counted 100 Seg Neutrophils % Not Reportable Seg Neuts % (Manual) 94 H Lymphocytes % Not Reportable Lymphocytes % (Manual) 2 L Monocytes % Not Reportable Monocytes % (Manual) 4 Eosinophils % Not Reportable Eosinophils % (Manual) 0 Basophils % Not Reportable Basophils % (Manual) 0 Absolute Neutrophils Not Reportable Abs Neuts (Manual) 15.2 H Absolute Lymphocytes Not Reportable Abs Lymphs (Manual) 0.3 L Absolute Monocytes Not Reportable Abs Monocytes (Manual) 0.6 Absolute Eosinophils Not Reportable Absolute Eos (Manual) 0.0 Absolute Basophils Not Reportable Abs Basophils (Manual) 0.0 Platelet Comment ADEQUATE Polychromasia 1+ Hypochromasia 3+ Anisocytosis 1+ Sodium 134.1 L Potassium 4.2 Chloride 106 Carbon Dioxide 16 L Anion Gap 12 BUN 23 H Creatinine 0.75 Est GFR ( Amer) > 60 Est GFR (Non-Af Amer) > 60 Glucose 101 Lactic Acid 2.3 H Calcium 9.0 Total Bilirubin 0.3 Direct Bilirubin 0.3 Neonat Total Bilirubin Not Reportable Neonat Direct Bilirubin Not Reportable Neonat Indirect Bili Not Reportable AST 14 L ALT 17 L Alkaline Phosphatase 449 H Troponin I Total Protein 5.1 L Albumin 2.1 L Blood Type Antibody Screen Crossmatch 07/26/18 07/26/18 00:10 00:58 WBC RBC Hgb Hct MCV MCH MCHC RDW Plt Count Total Counted Seg Neutrophils % Seg Neuts % (Manual) Lymphocytes % Lymphocytes % (Manual) Monocytes % Monocytes % (Manual) Eosinophils % Eosinophils % (Manual) Basophils % Basophils % (Manual) Absolute Neutrophils Abs Neuts (Manual) Absolute Lymphocytes Abs Lymphs (Manual) Absolute Monocytes Abs Monocytes (Manual) Absolute Eosinophils Absolute Eos (Manual) Absolute Basophils Abs Basophils (Manual) Platelet Comment Polychromasia Hypochromasia Anisocytosis Sodium Potassium Chloride Carbon Dioxide Anion Gap BUN Creatinine Est GFR ( Amer) Est GFR (Non-Af Amer) Glucose Lactic Acid Calcium Total Bilirubin Direct Bilirubin Neonat Total Bilirubin Neonat Direct Bilirubin Neonat Indirect Bili AST ALT Alkaline Phosphatase Troponin I < 0.012 Total Protein Albumin Blood Type O POSITIVE Antibody Screen NEGATIVE Crossmatch See Detail Chest X-Ray 07/25/18 23:44 IMPRESSION: Left-sided pleural effusion with adjacent atelectasis/consolidation. - Vital Signs Vital signs: Temp Pulse Resp BP Pulse Ox 98.3 F 118 H 30 H 112/81 98 07/26/18 01:50 07/26/18 01:51 07/26/18 01:51 07/26/18 01:50 07/26/18 01:51 - Laboratory Result Diagrams: 07/26/18 00:10 07/26/18 00:10 Laboratory results interpreted by me: 07/26/18 07/26/18 07/26/18 00:10 00:10 00:10 WBC 16.2 H RBC 3.27 L Hgb 8.8 L Hct 27.2 L RDW 16.4 H Seg Neuts % (Manual) 94 H Lymphocytes % (Manual) 2 L Abs Neuts (Manual) 15.2 H Abs Lymphs (Manual) 0.3 L Sodium 134.1 L Carbon Dioxide 16 L BUN 23 H Lactic Acid 2.3 H AST 14 L ALT 17 L Alkaline Phosphatase 449 H Total Protein 5.1 L Albumin 2.1 L Crossmatch 07/26/18 00:58 WBC RBC Hgb Hct RDW Seg Neuts % (Manual) Lymphocytes % (Manual) Abs Neuts (Manual) Abs Lymphs (Manual) Sodium Carbon Dioxide BUN Lactic Acid AST ALT Alkaline Phosphatase Total Protein Albumin Crossmatch See Detail - EKG Interpretation by Me Additional EKG results interpreted by me: 07/26/18 00:20 Interpreted by myself [id number]: Sinus tachycardia, rate 133, normal axis, no ectopy, no ST elevation Critical Care Note - Critical Care Note Total time excluding time spent on procedures (mins): 45 Comments: Active bleeding on anticoagulation and septic shock requiring hemodynamic resuscitation. Potential for hemodynamic decompensation. Discussion with multiple specialist. Frequent re-evaluations. Discharge - Discharge Clinical Impression: Upper GI bleed, Septic shock Pneumonia Qualifiers: Pneumonia type: due to unspecified organism Laterality: left Lung location: lower lobe of lung Qualified Code(s): J18.1 - Lobar pneumonia, unspecified organism Condition: Stable Disposition: [facility] Referrals: LOUISA BARRAGAN MD [Primary Care Provider] - Follow up as needed
[2018-07-26] MEDS ORDERED: NORMAL SALINE 250 ML IV PRN ×2 (00:21)
[2018-07-26 00:30] LABS: HEMATOCRIT 27.2 % (37.9-51.0); HEMOGLOBIN 8.8 g/dL (13.5-17.0); MEAN CORPUSCULAR HGB CONC 32.4 g/dL (32.0-36.0); MEAN CORPUSCULAR VOLUME 83 fl (80-97); PLATELET COUNT 440 10^3/uL (150-450); RED BLOOD COUNT 3.27 10^6/uL (4.35-5.55); RED CELL DISTRIBUTION WIDTH 16.4 % (11.5-14.0); WHITE BLOOD COUNT 16.2 10^3/uL (4.0-10.5)
[2018-07-26] MEDS ORDERED: NORMAL SALINE 1000 ML 1,000 ML IV ONE (00:43)
[2018-07-26 00:46] LABS: ABSOLUTE LYMPHOCYTES# (MANUAL) 0.3 10^3/uL (0.5-4.7); ABSOLUTE MONOCYTES # (MANUAL) 0.6 10^3/uL (0.1-1.4); ABSOLUTE NEUTROPHILS# (MANUAL) 15.2 10^3/uL (1.7-8.2); ANISOCYTOSIS 1+; BASOPHILS % (MANUAL) 0 % (0-2); EOSINOPHILS % (MANUAL) 0 % (0-6); HYPOCHROMASIA 3+; LYMPHOCYTES % (MANUAL) 2 % (13-45); MONOCYTES % (MANUAL) 4 % (3-13); PLATELET COMMENT ADEQUATE; POLYCHROMASIA 1+; SEGMENTED NEUTROPHILS % (MAN) 94 % (42-78); TOTAL CELLS COUNTED 100
--- NOTE | 2018-07-26 00:53 | RADIOLOGY REPORT (SQ) ---
XR CHEST 1 VIEW HISTORY: Cough. COMPARISON: 11/23/2017 FINDINGS: The cardiomediastinal silhouette is unremarkable. There is a left-sided pleural effusion. There is likely adjacent atelectasis/consolidation. The right lung is clear. No discernible pneumothorax. IMPRESSION: Left-sided pleural effusion with adjacent atelectasis/consolidation.
[2018-07-26 00:59] LABS: ALANINE AMINOTRANSFERASE 17 U/L (21-72); ALBUMIN 2.1 g/dL (3.5-5.0); ALKALINE PHOSPHATASE 449 U/L (38-126); ANION GAP 12 (5-19); ASPARTATE AMINO TRANSFERASE 14 U/L (17-59); BILIRUBIN,DIRECT 0.3 mg/dL (0.0-0.4); BILIRUBIN,TOTAL 0.3 mg/dL (0.2-1.3); BLOOD UREA NITROGEN 23 mg/dL (7-20); CARBON DIOXIDE 16 mmol/L (22-30); CHLORIDE 106 mmol/L (98-107); GLUCOSE 101 mg/dL (75-110); POTASSIUM 4.2 mmol/L (3.6-5.0); SODIUM 134.1 mmol/L (137-145); TOTAL PROTEIN 5.1 g/dL (6.3-8.2)
[2018-07-26] MEDS ORDERED: OCTREOTIDE ACETATE INJ/PF 100 MCG/1 ML SDV IV ONE (01:03)
[2018-07-26 03:09] LABS: APPEARANCE,URINE TURBID; BILIRUBIN,URINE NEGATIVE (NEGATIVE); GLUCOSE, URINE NEGATIVE (NEGATIVE); KETONES,URINE TRACE mg/dL (NEGATIVE); LEUKOCYTE ESTERASE,URINE LARGE (NEGATIVE); NITRITE,URINE NEGATIVE (NEGATIVE); PROTEIN,URINE 100 mg/dL (NEGATIVE); UROBILINOGEN,URINE NEGATIVE mg/dL (<2.0)
[2018-07-26 03:10] LABS: COLOR,URINE YELLOW
[2018-07-26 03:11] VITALS: BP 120/93
--- NOTE | 2018-07-26 12:44 | EKG REPORT ---
SEVERITY:- ABNORMAL ECG - SINUS TACHYCARDIA LOW VOLTAGE THROUGHOUT NONSPECIFIC T ABNORMALITIES, DIFFUSE LEADS : Confirmed by: Adri Shepherd MD 26-Jul-2018 12:43:18
== END 2018-07-26 02:40 | disposition short-term general hospital (02) ==
LOC: ER 23:41
DX: A41.9 Sepsis, unspecified organism (principal); R65.21 Severe sepsis with septic shock; J18.1 Lobar pneumonia, unspecified organism; R11.10 Vomiting, unspecified; R05 Cough; C19 Malignant neoplasm of rectosigmoid junction; K92.2 Gastrointestinal hemorrhage, unspecified; Z79.899 Other long term (current) drug therapy
CPT/HCPCS: 93005; 99291; 96375; 96365; 96367; 86900; 86901; 36415; 87040; 87086; 36430; 86850; 85025; 87088; 80053; 81001; 84484; 87186; 86920; 83605; 71045; 93010; P9016; J3010; J2354; C9113; J7030; J7050; J3370; J2543; S0164